=== PATIENT | male | born 1985 | race African-American/Black ===

== ENCOUNTER 2017-05-10 12:18 | Inpatient (IN) | payer OTHER ==
[2017-05-10 14:36] VITALS: BMI 23.5
--- NOTE | 2017-05-10 16:35 | HP ---
CIWA Score - CIWA Score Nausea/Vomitin-Mild Nausea/No Vomiting Muscle Tremors: 4-Moderate,w/Arms Extend Anxiety: 5 Agitation: 4-Moderately Restless Paroxysmal Sweats: 2 Orientation: 0-Oriented Tacttile Disturbances: 0-None Auditory Disturbances: 0-None Visual Disturbances: 0-None Headache: 0-None Present CIWA-Ar Total Score: 16 Admission ROS BHS - HPI Chief Complaint: withdrawal sx Allergies/Adverse Reactions: Allergies Allergy/AdvReac Type Severity Reaction Status Date / Time No Known Allergies Allergy Verified 05/10/17 16:32 History of Present Illness: 31 years old male with long history of alcohol nicotine dependence on methadone maintenance 40 mg daily has depression is admitted to detox denies medical issue Exam Limitations: No Limitations - Ebola screening Have you traveled outside of the country in the last 21 days: No Have you had contact with anyone from an Ebola affected area: No Have you been sick,other than usual withdrawal symptoms: No Do you have a fever: No - Review of Systems Constitutional: Loss of Appetite, Changes in sleep, Unintentional Wgt. Loss, Unexplained wgt Loss EENT: reports: No Symptoms Reported Respiratory: reports: No Symptoms reported Cardiac: reports: No Symptoms Reported GI: reports: Nausea, Poor Appetite, Poor Fluid Intake, Abdominal cramping : reports: No Symptoms Reported Musculoskeletal: reports: No Symptoms Reported Integumentary: reports: No Symptoms Reported Neuro: reports: Tremors Endocrine: reports: No Symptoms Reported Hematology: reports: No Symptoms Reported Psychiatric: reports: Judgement Intact, Orientated x3, Anxious, Depressed Other Systems: Reviewed and Negative Patient History - Patient Medical History Hx Anemia: No Hx Asthma: No Hx Chronic Obstructive Pulmonary Disease (COPD): No Hx Cancer: No Hx Cardiac Disorders: No Hx Congestive Heart Failure: No Hx Hypertension: No Hx Hypercholesterolemia: No Hx Pacemaker: No HX Cerebrovascular Accident: No Hx Seizures: No Hx Dementia: No Hx Diabetes: No Hx Gastrointestinal Disorders: No Hx Liver Disease: No Hx Genitourinary Disorders: No Hx Sexually Transmitted Disorders: No Hx Renal Disease (ESRD): No Hx Thyroid Disease: No Hx Human Immunodeficiency Virus (HIV): No Hx Hepatitis C: No Hx Depression: Yes Hx Suicide Attempt: No Hx Bipolar Disorder: No Hx Schizophrenia: No - Patient Surgical History Past Surgical History: No - PPD History Previous Implant?: Yes Documented Results: Negative w/o proof Implanted On Prior [facility] Admission?: No PPD to be Administered?: Yes - Smoking Cessation Smoking history: Current every day smoker Have you smoked in the past 12 months: Yes Aproximately how many cigarettes per day: 10 Cigars Per Day: 0 Hx Chewing Tobacco Use: No Initiated information on smoking cessation: Yes 'Breaking Loose' booklet given: 05/10/17 - Substance & Tx. History Hx Alcohol Use: Yes Hx Substance Use: Yes Substance Use Type: Alcohol, Heroin Hx Substance Use Treatment: Yes (01/2017 [facility]) - Substances Abused Alcohol Route: Oral Frequency: Daily Amount used: volka 2 L Age of first use: 5 Date of Last Use: 05/10/17 Family Disease History - Family Disease History Family Disease History: Other: Father (no contact), Mother (no contact) Other Family History: only child Admission Physical Exam BHS - Vital Signs Vital Signs: Vital Signs - 24 hr 05/10/17 14:33 Temperature 97 F L Pulse Rate 112 H Respiratory 20 Rate Blood Pressure 150/94 - Physical General Appearance: Yes: Appropriately Dressed, Moderate Distress, Alcohol on Breath, Thin, Tremorous, Irritable, Sweating, Anxious HEENTM: Yes: Hearing grossly Normal, Normal ENT Inspection, Normocephalic, Normal Voice Respiratory: Yes: Chest Non-Tender, Lungs Clear, Normal Breath Sounds, No Respiratory Distress, No Accessory Muscle Use Neck: Yes: Supple, Trachea in good position Breast: Yes: Breasts Symetrical Cardiology: Yes: Regular Rhythm, Regular Rate, S1, S2, Tachycardia Abdominal: Yes: Non Tender, Soft, Increased Bowel Sounds Genitourinary: Yes: Within Normal Limits Back: Yes: Normal Inspection Musculoskeletal: Yes: full range of Motion, Gait Steady Extremities: Yes: Normal Inspection, Normal Range of Motion, Non-Tender, Tremors Neurological: Yes: Fully Oriented, Alert, Motor Strength 5/5, Normal Response, Sensory Deficit Integumentary: Yes: Warm Lymphatic: Yes: Within Normal Limits - Diagnostic (1) Alcohol dependence with uncomplicated withdrawal Current Visit: Yes Status: Acute (2) Nicotine dependence Current Visit: Yes Status: Acute Qualifiers: Nicotine product type: cigarettes Substance use status: in withdrawal Qualified Code(s): F17.213 - Nicotine dependence, cigarettes, with withdrawal (3) Weight loss Current Visit: Yes Status: Acute (4) Methadone maintenance therapy patient Current Visit: Yes Status: Chronic Comment: 40 mg verification pending (5) Depression (emotion) Current Visit: Yes Status: Suspected Qualifiers: Depression Type: dysthymia Qualified Code(s): F34.1 - Dysthymic disorder Cleared for Admission [facility] - Detox or Rehab [facility] Level of Care: Medically Managed Detox Regimen/Protocol: Librium [facility] Breath Alcohol Content Breath Alcohol Content: 0.210 Urine Drug Screen - Results Drug Screen Negative: No Urine Drug Screen Results: AMP-Amphetamines, MTD-Methadone
[2017-05-10] MEDS ORDERED: MAGNESIUM HYDROX 2400MG/30ML ORAL SUSPENSION 30 ML CUP PO PRN (16:38)
[2017-05-10] MEDS ORDERED: chlordiazePOXIDE HCL 25 MG CAPSULE PO PRN (16:38)
[2017-05-10] MEDS ORDERED: diphenhydrAMINE HCL 50 MG CAPSULE PO PRN (16:38)
[2017-05-10] MEDS ORDERED: LOPERAMIDE HCL 2 MG CAPSULE PO PRN (16:38)
[2017-05-10] MEDS ORDERED: guaiFENesin/D-METHORPHAN HB 10 ML UNIT-DOSE CUPS PO PRN (16:38)
[2017-05-10] MEDS ORDERED: ACETAMINOPHEN 325 MG TABLET (FP) PO PRN (16:38)
[2017-05-10] MEDS ORDERED: MENTHOL/PHENOL 1 EACH UD MM PRN (16:38)
[2017-05-10] MEDS ORDERED: MAG HYDROX/AL HYDROX/SIMETH 30 ML UNIT-DOSE CUP PO PRN (16:38)
[2017-05-10] MEDS ORDERED: MAGNESIUM CITRATE 300 ML BOTTLE PO PRN (16:38)
[2017-05-10] MEDS ORDERED: NICOTINE POLACRILEX 2 MG GUM BC PRN (16:38)
[2017-05-10] MEDS ORDERED: P-EPHED 60MG/TRIPROLIDI 2.5MG TABLET PO PRN (16:38)
[2017-05-10] MEDS ORDERED: IBUPROFEN 400 MG TABLET (FP) PO PRN (16:38)
[2017-05-10] MEDS ORDERED: cloNIDine HCL 0.1 MG TABLET PO PRN (16:40)
[2017-05-10] MEDS ORDERED: chlordiazePOXIDE HCL 25 MG CAPSULE PO ONE (17:45)
[2017-05-10] MEDS ORDERED: chlordiazePOXIDE HCL 25 MG CAPSULE ONE (20:52)
[2017-05-10] MEDS: THIAMINE HCL 100 MG TABLET (FP) PO SCH (22:10)
[2017-05-10] MEDS: chlordiazePOXIDE HCL 25 MG CAPSULE PO SCH (22:10)
[2017-05-10 23:37] LABS: URINE APPEARANCE SLCLOUDY; URINE BILIRUBIN NEGATIVE (NEGATIVE); URINE BLOOD NEGATIVE (NEGATIVE); URINE COLOR DKYELLOW; URINE GLUCOSE (UA) NEGATIVE (NEGATIVE); URINE KETONE NEGATIVE (NEGATIVE); URINE LEUK ESTERASE NEGATIVE (NEGATIVE); URINE NITRITE NEGATIVE (NEGATIVE); URINE UROBILINOGEN NEGATIVE mg/dL (0.2-1.0)
[2017-05-10 23:53] LABS: URINE PROTEIN 1+ (NEGATIVE)
[2017-05-11] LABS: CALCIUM OXALATE CRYSTALS MODERATE /hpf (NONE SEEN); GRANULAR CASTS 15 /lpf; URINE HYALINE CAST 4 /lpf; URINE MUCUS MODERATE; URINE RBC 1 /hpf (0-3); URINE WBC 2 /hpf (3-5)
[2017-05-11] MEDS: chlordiazePOXIDE HCL 25 MG CAPSULE PO SCH ×4 (05:59→22:23)
--- NOTE | 2017-05-11 09:21 | EKG ---
Test Reason : Blood Pressure : / mmHG Vent. Rate : 082 BPM Atrial Rate : 082 BPM P-R Int : 154 ms QRS Dur : 094 ms QT Int : 374 ms P-R-T Axes : 067 053 057 degrees QTc Int : 436 ms NORMAL SINUS RHYTHM NO PREVIOUS ECGS AVAILABLE Confirmed by BRIAN BAKER MD ([id number]) on 05/11/2017 9:21:11 AM Referred By: Confirmed By:BRIAN BAKER MD
--- NOTE | 2017-05-11 09:50 | PN ---
[facility] Progress Note Note: Patient was found in bed sleeping. He woke up after life underwriter called his name and became very irritable, hostile saying:" you guys give people medication to make me sleepy and now you want to talk to me. I don't want to talk".
[2017-05-11] MEDS: METHADONE HCL 40 MG DISPERSABLE TABLET PO SCH (10:12)
[2017-05-11] MEDS: PRENATAL VITAMINS W/ FOLIC ACID TABLET (FP) PO SCH (10:13)
[2017-05-11] MEDS: NICOTINE 14 MG/24 HOURS TOPICAL PATCH TD SCH (10:13)
[2017-05-11 10:20] LABS: MCH 30.9 pg (25.7-33.7); MCHC 33.8 g/dl (32.0-35.9); MEAN CELL VOLUME 91.5 fl (80-96); MEAN PLT VOLUME 7.2 fl (7.5-11.1); PLATELET COUNT 180 K/MM3 (134-434); RDW 13.5 % (11.9-15.9); WHITE BLOOD COUNT 3.3 K/mm3 (4.0-10.0)
--- NOTE | 2017-05-11 11:30 | CONSULT ---
[facility] Psychiatric Consult - Data Date of interview: 05/11/17 Admission source: [facility] Identifying data: Mr Chris is a 31 years old single Black male, unemployed with no source of income, homeless seeking detox treatment for alcohol Substance Abuse History: Reports history of alcohol use. He started drinking alcohol at age 5, consumes 2 pints of vodka daily. Smokes 10 cigarettes daily Medical History: Unremarkable. Smokes 10 cigarettes daily Psychiatric History: Reports being diagnosed with Bipolar Disorder approximately 7 years ago. Denies history of previous psychiatric hospitalization. Reports [facility] at [address] [place] [address] and he is prescribed Zoloft 50 mg po daily, Lamictal 200 mg po daily, Klonopin 1 mg po BID and Adderal 20 mg po daily. Told rewriter that he has been off medications for 3 days Mental Status Exam - Mental Status Exam Alert and Oriented to: Time, Place, Person Cognitive Function: Fair Patient Appearance: Well Groomed Mood: Anxious Affect: Appropriate Patient Behavior: Cooperative Speech Pattern: Clear Voice Loudness: Normal Thought Process: Intact, Goal Oriented Thought Disorder: Not Present Hallucinations: Denies Suicidal Ideation: Denies Homicidal Ideation: Denies Insight/Judgement: Fair Sleep: Fair Appetite: Good Muscle strength/Tone: Normal Gait/Station: Normal Psychiatric Findings - Problem List ([place] 1, 2,3) (1) Bipolar II disorder Current Visit: Yes Status: Acute (2) Alcohol dependence with uncomplicated withdrawal Current Visit: Yes Status: Acute (3) Opioid dependence on agonist therapy Current Visit: Yes Status: Acute (4) Nicotine dependence Current Visit: Yes Status: Acute Qualifiers: Nicotine product type: cigarettes Substance use status: in withdrawal Qualified Code(s): F17.213 - Nicotine dependence, cigarettes, with withdrawal - Initial Treatment Plan Initial Treatment Plan: 1) Resume Zoloft 50 mg po daily and Lamictal 200 mg po daily. 2) Continue inpatient detoxification
[2017-05-11 11:31] LABS: ALBUMIN 3.4 g/dl (3.4-5.0); ALK PHOS 53 U/L (45-117); ANION GAP 12 (8-16); BILIRUBIN,TOTAL 0.6 mg/dL (0.2-1.0); CALCIUM 9.3 mg/dL (8.5-10.1); CO2 26 mmol/L (21-32); CREATININE 0.8 mg/dL (0.7-1.3); GLUCOSE,RANDOM 89 mg/dL (74-106); SGOT/AST 56 U/L (15-37); SGPT/ALT 55 U/L (12-78); TOT PROT 6.3 g/dl (6.4-8.2)
--- NOTE | 2017-05-11 11:44 | PN ---
[facility] CIWA - CIWA Score Nausea/Vomitin-Mild Nausea/No Vomiting Muscle Tremors: 3 Anxiety: 5 Agitation: 3 Paroxysmal Sweats: 3 Orientation: 0-Oriented Tacttile Disturbances: 2-Mild Itch/Numbness/Burn Auditory Disturbances: 0-None Visual Disturbances: 2-Mild Sensitivity Headache: 0-None Present CIWA-Ar Total Score: 19 S Progress Note (SOAP) Subjective: Tremors, Anxious, Sweating. Objective: PT. A & O X 3, OBSERVED AMBULATING ON UNIT. NO ACUTE DISTRESS. 05/11/17 11:43 Vital Signs Temperature 97.6 F 05/11/17 10:43 Pulse Rate 95 H 05/11/17 10:43 Respiratory Rate 20 05/11/17 10:43 Blood Pressure 151/70 05/11/17 10:43 O2 Sat by Pulse Oximetry (%) Laboratory Tests 05/10/17 05/11/17 05/11/17 22:00 07:40 07:40 WBC 3.3 L RBC 4.77 Hgb 14.8 Hct 43.6 MCV 91.5 MCH 30.9 MCHC 33.8 RDW 13.5 Plt Count 180 MPV 7.2 L Sodium 138 Potassium 3.9 Chloride 100 Carbon Dioxide 26 Anion Gap 12 BUN 9 Creatinine 0.8 Creat Clearance w eGFR > 60 Random Glucose 89 Calcium 9.3 Total Bilirubin 0.6 AST 56 H ALT 55 Alkaline Phosphatase 53 Total Protein 6.3 L Albumin 3.4 Urine Color Dkyellow Urine Appearance Slcloudy Urine pH 6.0 Ur Specific [place] 1.025 Urine Protein 1+ H Urine Glucose (UA) Negative Urine Ketones Negative Urine Blood Negative Urine Nitrite Negative Urine Bilirubin Negative Urine Urobilinogen Negative Urine RBC 1 Urine WBC 2 Ur Epithelial Cells Rare Calcium Oxalate Crystal Moderate Hyaline Casts 4 Granular Casts 15 Urine Mucus Moderate RPR Titer 05/11/17 07:40 WBC RBC Hgb Hct MCV MCH MCHC RDW Plt Count MPV Sodium Potassium Chloride Carbon Dioxide Anion Gap BUN Creatinine Creat Clearance w eGFR Random Glucose Calcium Total Bilirubin AST ALT Alkaline Phosphatase Total Protein Albumin Urine Color Urine Appearance Urine pH Ur Specific [place] Urine Protein Urine Glucose (UA) Urine Ketones Urine Blood Urine Nitrite Urine Bilirubin Urine Urobilinogen Urine RBC Urine WBC Ur Epithelial Cells Calcium Oxalate Crystal Hyaline Casts Granular Casts Urine Mucus RPR Titer Nonreactive LABS NOTED. Assessment: 05/11/17 11:44 WITHDRAWAL SYMPTOMS. Plan: CONTINUE DETOX. REPEAT CBC ON 05/13/2017 FOR LOW ADMISSION WBC LEVEL. REPEAT UA FOR ADMISSION ABNORMALITIES. INCREASE DAILY PO FLUID INTAKE.
[2017-05-11] MEDS: lamoTRIgine 100 MG TABLET (FP) PO SCH (13:58)
[2017-05-11] MEDS: SERTRALINE HCL 50 MG TABLET (FP) PO SCH (13:58)
[2017-05-11 16:55] LABS: URINE APPEARANCE CLEAR; URINE BILIRUBIN NEGATIVE (NEGATIVE); URINE BLOOD NEGATIVE (NEGATIVE); URINE COLOR YELLOW; URINE GLUCOSE (UA) NEGATIVE (NEGATIVE); URINE KETONE TRACE (NEGATIVE); URINE LEUK ESTERASE NEGATIVE (NEGATIVE); URINE NITRITE NEGATIVE (NEGATIVE); URINE PROTEIN NEGATIVE (NEGATIVE); URINE UROBILINOGEN 0.2 mg/dL (0.2-1.0)
[2017-05-11] MEDS: THIAMINE HCL 100 MG TABLET (FP) PO SCH (22:23)
[2017-05-12] MEDS: METHADONE HCL 40 MG DISPERSABLE TABLET PO SCH (06:07)
[2017-05-12] MEDS: chlordiazePOXIDE HCL 25 MG CAPSULE PO SCH ×3 (06:09→19:07)
[2017-05-12] MEDS: lamoTRIgine 100 MG TABLET (FP) PO SCH (10:46)
[2017-05-12] MEDS: NICOTINE 14 MG/24 HOURS TOPICAL PATCH TD SCH (10:46)
[2017-05-12] MEDS: SERTRALINE HCL 50 MG TABLET (FP) PO SCH (10:46)
[2017-05-12] MEDS: PRENATAL VITAMINS W/ FOLIC ACID TABLET (FP) PO SCH (10:46)
--- NOTE | 2017-05-12 13:47 | PN ---
[facility] CIWA - CIWA Score Nausea/Vomitin-No Nausea/No Vomiting Muscle Tremors: 3 Anxiety: 4-Mod. Anxious/Guarded Agitation: 4-Moderately Restless Paroxysmal Sweats: 3 Orientation: 2-Disoriented Date<2 days Tacttile Disturbances: 1-Very Mild Itch/Numbness Auditory Disturbances: 0-None Visual Disturbances: 0-None Headache: 0-None Present CIWA-Ar Total Score: 17 S Progress Note (SOAP) Subjective: Fatigue, Tremors, Anxious, Sweating. Objective: PT. A & O X 2 (DISORIENTED ABOUT DAY / DATE). PT. OBSERVED AMBULATING ON UNIT. NO ACUTE DISTRESS. 05/12/17 13:44 Vital Signs Temperature 96.3 F L 05/12/17 09:48 Pulse Rate 68 05/12/17 09:48 Respiratory Rate 18 05/12/17 09:48 Blood Pressure 122/84 05/12/17 09:48 O2 Sat by Pulse Oximetry (%) Laboratory Tests 05/10/17 05/11/17 05/11/17 22:00 07:40 07:40 WBC 3.3 L RBC 4.77 Hgb 14.8 Hct 43.6 MCV 91.5 MCH 30.9 MCHC 33.8 RDW 13.5 Plt Count 180 MPV 7.2 L Sodium 138 Potassium 3.9 Chloride 100 Carbon Dioxide 26 Anion Gap 12 BUN 9 Creatinine 0.8 Creat Clearance w eGFR > 60 Random Glucose 89 Calcium 9.3 Total Bilirubin 0.6 AST 56 H ALT 55 Alkaline Phosphatase 53 Total Protein 6.3 L Albumin 3.4 Urine Color Dkyellow Urine Appearance Slcloudy Urine pH 6.0 Ur Specific [place] 1.025 Urine Protein 1+ H Urine Glucose (UA) Negative Urine Ketones Negative Urine Blood Negative Urine Nitrite Negative Urine Bilirubin Negative Urine Urobilinogen Negative Urine RBC 1 Urine WBC 2 Ur Epithelial Cells Rare Calcium Oxalate Crystal Moderate Hyaline Casts 4 Granular Casts 15 Urine Mucus Moderate RPR Titer 05/11/17 05/11/17 07:40 15:00 WBC RBC Hgb Hct MCV MCH MCHC RDW Plt Count MPV Sodium Potassium Chloride Carbon Dioxide Anion Gap BUN Creatinine Creat Clearance w eGFR Random Glucose Calcium Total Bilirubin AST ALT Alkaline Phosphatase Total Protein Albumin Urine Color Yellow Urine Appearance Clear Urine pH 6.0 Ur Specific [place] 1.020 Urine Protein Negative Urine Glucose (UA) Negative Urine Ketones Trace H Urine Blood Negative Urine Nitrite Negative Urine Bilirubin Negative Urine Urobilinogen 0.2 Urine RBC Urine WBC Ur Epithelial Cells Calcium Oxalate Crystal Hyaline Casts Granular Casts Urine Mucus RPR Titer Nonreactive LABS NOTED. RESULTS OF REPEAT UA NOTED. 05/12/17 13:46 Assessment: 05/12/17 13:45 WITHDRAWAL SYMPTOMS. Plan: CONTINUE DETOX. INCREASE DAILY PO FLUID INTAKE.
[2017-05-12] MEDS: NICOTINE 21 MG/24 HOURS TOPICAL PATCH TD SCH (15:39)
[2017-05-12] MEDS: chlordiazePOXIDE 5 MG CAPSULE PO SCH (22:35)
[2017-05-12] MEDS: THIAMINE HCL 100 MG TABLET (FP) PO SCH (22:35)
[2017-05-13] MEDS: METHADONE HCL 40 MG DISPERSABLE TABLET PO SCH (05:45)
[2017-05-13] MEDS: chlordiazePOXIDE 5 MG CAPSULE PO SCH ×3 (06:38→19:05)
[2017-05-13] MEDS: NICOTINE 21 MG/24 HOURS TOPICAL PATCH TD SCH (10:15)
[2017-05-13] MEDS: lamoTRIgine 100 MG TABLET (FP) PO SCH (10:15)
[2017-05-13] MEDS: PRENATAL VITAMINS W/ FOLIC ACID TABLET (FP) PO SCH (10:15)
[2017-05-13] MEDS: SERTRALINE HCL 50 MG TABLET (FP) PO SCH (10:15)
--- NOTE | 2017-05-13 15:32 | PN ---
S Progress Note (SOAP) Subjective: Sweating, tremor, interrupted sleep, anxious Objective: 05/13/17 15:31 Last Vital Signs Temp Pulse Resp BP Pulse Ox 97.8 F 94 H 18 122/79 05/13/17 10:59 05/13/17 10:59 05/13/17 10:59 05/13/17 10:59 Laboratory Tests 05/10/17 05/11/17 05/11/17 22:00 07:40 07:40 WBC 3.3 L RBC 4.77 Hgb 14.8 Hct 43.6 MCV 91.5 MCH 30.9 MCHC 33.8 RDW 13.5 Plt Count 180 MPV 7.2 L Sodium 138 Potassium 3.9 Chloride 100 Carbon Dioxide 26 Anion Gap 12 BUN 9 Creatinine 0.8 Creat Clearance w eGFR > 60 Random Glucose 89 Calcium 9.3 Total Bilirubin 0.6 AST 56 H ALT 55 Alkaline Phosphatase 53 Total Protein 6.3 L Albumin 3.4 Urine Color Dkyellow Urine Appearance Slcloudy Urine pH 6.0 Ur Specific [place] 1.025 Urine Protein 1+ H Urine Glucose (UA) Negative Urine Ketones Negative Urine Blood Negative Urine Nitrite Negative Urine Bilirubin Negative Urine Urobilinogen Negative Urine RBC 1 Urine WBC 2 Ur Epithelial Cells Rare Calcium Oxalate Crystal Moderate Hyaline Casts 4 Granular Casts 15 Urine Mucus Moderate RPR Titer 05/11/17 05/11/17 07:40 15:00 WBC RBC Hgb Hct MCV MCH MCHC RDW Plt Count MPV Sodium Potassium Chloride Carbon Dioxide Anion Gap BUN Creatinine Creat Clearance w eGFR Random Glucose Calcium Total Bilirubin AST ALT Alkaline Phosphatase Total Protein Albumin Urine Color Yellow Urine Appearance Clear Urine pH 6.0 Ur Specific [place] 1.020 Urine Protein Negative Urine Glucose (UA) Negative Urine Ketones Trace H Urine Blood Negative Urine Nitrite Negative Urine Bilirubin Negative Urine Urobilinogen 0.2 Urine RBC Urine WBC Ur Epithelial Cells Calcium Oxalate Crystal Hyaline Casts Granular Casts Urine Mucus RPR Titer Nonreactive Labs noted Assessment: 05/13/17 15:32 Withdrawal symptoms Plan: Continue detox
[2017-05-14] MEDS: METHADONE HCL 40 MG DISPERSABLE TABLET PO SCH (05:40)
[2017-05-14] MEDS: chlordiazePOXIDE HCL 10 MG CAPSULE PO SCH ×2 (05:41→10:28)
[2017-05-14 09:12] VITALS: BP 137/58; PULSE 83; TEMP 97.4
--- NOTE | 2017-05-14 09:27 | DS ---
[facility] Detox Discharge Summary Admission Date: 05/10/17 Discharge Date: 05/14/17 - History Present History: Alcohol Dependence, Opioid Dependence, MMTP Pertinent Past History: nicotine dependence, anxiety, insomnia, and depression - Physical Exam Results Vital Signs: Vital Signs Temperature 97.4 F L 05/14/17 09:12 Pulse Rate 83 05/14/17 09:12 Respiratory Rate 18 05/14/17 09:12 Blood Pressure 137/58 05/14/17 09:12 O2 Sat by Pulse Oximetry (%) Laboratory Tests 05/10/17 05/11/17 05/11/17 22:00 07:40 07:40 WBC 3.3 L RBC 4.77 Hgb 14.8 Hct 43.6 MCV 91.5 MCH 30.9 MCHC 33.8 RDW 13.5 Plt Count 180 MPV 7.2 L Sodium 138 Potassium 3.9 Chloride 100 Carbon Dioxide 26 Anion Gap 12 BUN 9 Creatinine 0.8 Creat Clearance w eGFR > 60 Random Glucose 89 Calcium 9.3 Total Bilirubin 0.6 AST 56 H ALT 55 Alkaline Phosphatase 53 Total Protein 6.3 L Albumin 3.4 Urine Color Dkyellow Urine Appearance Slcloudy Urine pH 6.0 Ur Specific [place] 1.025 Urine Protein 1+ H Urine Glucose (UA) Negative Urine Ketones Negative Urine Blood Negative Urine Nitrite Negative Urine Bilirubin Negative Urine Urobilinogen Negative Urine RBC 1 Urine WBC 2 Ur Epithelial Cells Rare Calcium Oxalate Crystal Moderate Hyaline Casts 4 Granular Casts 15 Urine Mucus Moderate RPR Titer 05/11/17 05/11/17 07:40 15:00 WBC RBC Hgb Hct MCV MCH MCHC RDW Plt Count MPV Sodium Potassium Chloride Carbon Dioxide Anion Gap BUN Creatinine Creat Clearance w eGFR Random Glucose Calcium Total Bilirubin AST ALT Alkaline Phosphatase Total Protein Albumin Urine Color Yellow Urine Appearance Clear Urine pH 6.0 Ur Specific [place] 1.020 Urine Protein Negative Urine Glucose (UA) Negative Urine Ketones Trace H Urine Blood Negative Urine Nitrite Negative Urine Bilirubin Negative Urine Urobilinogen 0.2 Urine RBC Urine WBC Ur Epithelial Cells Calcium Oxalate Crystal Hyaline Casts Granular Casts Urine Mucus RPR Titer Nonreactive Pertinent Admission Physical Exam Findings: withdrawal sx - Treatment Hospital Course: Detox Protocol Followed, Detoxed Safely, Responded well, Discharged Condition Good, Rehab Referral Accepted - Medication Discharge Medications: Ambulatory Orders Sertraline HCl [Zoloft -] 50 mg PO DAILY 05/10/17 - Diagnosis (1) Alcohol dependence with uncomplicated withdrawal Current Visit: Yes Status: Acute (2) Bipolar II disorder Current Visit: Yes Status: Acute (3) Nicotine dependence Current Visit: Yes Status: Acute Qualifiers: Nicotine product type: cigarettes Substance use status: in withdrawal Qualified Code(s): F17.213 - Nicotine dependence, cigarettes, with withdrawal (4) Opioid dependence on agonist therapy Current Visit: Yes Status: Chronic (5) Depression (emotion) Current Visit: Yes Status: Suspected Qualifiers: Depression Type: dysthymia Qualified Code(s): F34.1 - Dysthymic disorder - AMA Did Patient Leave Against Medical Advice: No
[2017-05-14] MEDS: SERTRALINE HCL 50 MG TABLET (FP) PO SCH (10:27)
[2017-05-14] MEDS: PRENATAL VITAMINS W/ FOLIC ACID TABLET (FP) PO SCH (10:27)
[2017-05-14] MEDS: NICOTINE 21 MG/24 HOURS TOPICAL PATCH TD SCH (10:28)
[2017-05-14] MEDS: lamoTRIgine 100 MG TABLET (FP) PO SCH (10:28)
== END 2017-05-14 10:20 | disposition home or self-care (01) | DRG 773 ==
LOC: YASAS 12:18 → Y3N 17:16
PROVIDERS: ADMIT Internal Medicine; ATTEND Internal Medicine
PROC: HZ2ZZZZ Detoxification Services for Substance Abuse Treatment (ICD-10-PCS; principal; 2017-05-10)
DX: F10.230 Alcohol dependence with withdrawal, uncomplicated (principal); F11.20 Opioid dependence, uncomplicated; F34.1 Dysthymic disorder; F31.81 Bipolar II disorder; R00.0 Tachycardia, unspecified; Z87.898 Personal history of other specified conditions
CPT/HCPCS: 36415; 80053; 81003; 81015; 85027; 86593; 93005; 93010

== ENCOUNTER 2018-10-04 11:24 | Inpatient (IN) | payer OTHER ==
[2018-10-04 11:59] VITALS: BMI 23.8
--- NOTE | 2018-10-04 12:56 | HP ---
"COWS - Scale Resting Pulse: 2= [place] 101-120 Sweatin= No chills or Flushing Restless Observation: 0= Sits Still Pupil Size: 0= Normal to Room Light Bone or Joint Aches: 4=Acute Joint/Muscle Pain Runny Nose/ Eye Tearin= Runny Nose/Eyes GI Upset > 30mins: 1= Stomach Cramp Tremor Observation: 0= None Yawning Observation: 0= None Anxiety or Irritability: 1=Feels Anxious/Irritable Goose Flesh Skin: 0=Smooth Skin COWS Score: 10 CIWA Score Nausea/Vomitin-No Nausea/No Vomiting Muscle Tremors: None Anxiety: 0-No Anxiety, at Ease Agitation: 0-Normal Activity Paroxysmal Sweats: No Perspiration Orientation: 0-Oriented Tacttile Disturbances: 0-None Auditory Disturbances: 0-None Visual Disturbances: 0-None Headache: 4-Moderately Severe CIWA-Ar Total Score: 4 - Admission Criteria [facility] Guidelines: Admission for Medically Managed Detox: Requires at least one of the followin. CIWA greater than 12 2. Seizures within the past 24 hours 3. Delirium tremens within the past 24 hours 4. Hallucinations within the past 24 hours 5. Acute intervention needed for co occurring medical disorder 6. Acute intervention needed for co occurring psychiatric disorder 7. Severe withdrawal that cannot be handled at a lower level of care (continued vomiting, continued diarrhea, abnormal vital signs) requiring intravenous medication and/or fluids 8. Admission ROS [facility] Allergies/Adverse Reactions: Allergies Allergy/AdvReac Type Severity Reaction Status Date / Time No Known Allergies Allergy Verified 10/04/18 13:21 History of Present Illness: patient here requesting detox from etoh use , reports 1 liter of vodka/day since age 11 , heavily since age 16 , prior detox at this facility 1-2 years ago , latest use last night , current symptoms as above , NGA 0.108 , reports tremors if not drinking , + blackouts , + falls while intoxicated , most recently 1 mo ago hit head does not recall specifics, states did not seek medical attention , current [place] since this morning . Denies driving after drinking . Denies seizures . tobacco : denies heroin : reports 2 bundles/day , first age of use 21 , IVDU until 4 mo ago , needles from the store , denies sharing, denies re-using , denies abscess , OD x 8 , most recently 1 mo ago , no Narcan , latest use last night , current symptoms as above. PMHX : denies PSHX : denies PSYch : denies This report was requested by: Ne Acosta | Reference #: [id number] Others' Prescriptions Patient Name: Tera Chris Date: 1985 Address: [address] [place] [address] Sex: Male Rx Written Rx Dispensed Drug Quantity Days Supply Prescriber Name 12/25/2017 12/25/2017 chlordiazepoxide 10 mg capsule 18 2 Laks, Nicholas PETERSON 10/31/2017 10/31/2017 suboxone 2 mg-0.5 mg sl film 6 2 Laks, Nicholas PETERSON 10/30/2017 10/30/2017 suboxone 8 mg-2 mg sl film 3 1 Laks, Nicholas PETERSON 10/26/2017 10/26/2017 chlordiazepoxide 10 mg capsule 36 4 Laks, Nicholas PETERSON 10/25/2017 10/25/2017 suboxone 8 mg-2 mg sl film 9 3 Laks, Nicholas PETERSON Patient Name: Tera Chirs Date: 1985 Address: [address] [place] [address] Sex: Male Rx Written Rx Dispensed Drug Quantity Days Supply Prescriber Name 12/18/2017 12/24/2017 dextroamp-amphetamin 20 mg tab 60 30 Haritha Urbina MD 10/06/2017 10/06/2017 dextroamp-amphetamin 20 mg tab 54 27 Blade Lundy) Patient Name: Tera Chris Date: 1985 Address: [address] [place] [id number] Sex: Male Rx Written Rx Dispensed Drug Quantity Days Supply Prescriber Name 11/28/2017 12/01/2017 hydrocodone-acetaminophen 5-325 mg tablet 12 2 [facility] * - Drugs marked with an asterisk are compound drugs. If the compound drug is made up of more than one controlled substance, then each controlled substance will be a separate row in the table. Click the Report Suspicious Activity button to report information related to controlled substance suspicious activity to the [place] [employer]. Click the Send Questions/Comments button to send questions about this report to the [place] [employer], or call . Click the Substance Abuse Treatment Information button to go to the Office of Alcoholism and Substance Abuse Services website, www.oasas.[place].gov or call 1- 893.398.9188. Exam Limitations: Clinical Condition, Intoxication - Ebola screening Have you traveled outside of the country in the last 21 days: No Have you had contact with anyone from an Ebola affected area: No Have you been sick,other than usual withdrawal symptoms: No Do you have a fever: No - Review of Systems Constitutional: See HPI, Loss of Appetite EENT: reports: See HPI, Nose Congestion, Other (denies vision loss, denies dysphagia) Respiratory: reports: No Symptoms reported Cardiac: reports: No Symptoms Reported GI: reports: See HPI : reports: No Symptoms Reported Musculoskeletal: reports: See HPI Integumentary: reports: See HPI, Bruising (left side forehead) Neuro: reports: Headache Endocrine: reports: No Symptoms Reported Psychiatric: reports: Orientated x3, Anxious Patient History - Patient Medical History Hx Anemia: No Hx Asthma: No Hx Chronic Obstructive Pulmonary Disease (COPD): No Hx Cancer: No Hx Cardiac Disorders: No Hx Congestive Heart Failure: No Hx Hypertension: No Hx Hypercholesterolemia: No Hx Pacemaker: No HX Cerebrovascular Accident: No Hx Seizures: No Hx Dementia: No Hx Diabetes: No Hx Gastrointestinal Disorders: No Hx Liver Disease: No Hx Genitourinary Disorders: No Hx Sexually Transmitted Disorders: No Hx Renal Disease (ESRD): No Hx Thyroid Disease: No Hx Human Immunodeficiency Virus (HIV): No Hx Hepatitis C: No Hx Depression: Yes Hx Suicide Attempt: No Hx Bipolar Disorder: No Hx Schizophrenia: No - Patient Surgical History Past Surgical History: No Hx Neurologic Surgery: No Hx Cataract Extraction: No Hx Cardiac Surgery: No Hx Lung Surgery: No Hx Breast Surgery: No Hx Breast Biopsy: No Hx Abdominal Surgery: No Hx Appendectomy: No Hx Cholecystectomy: No Hx Genitourinary Surgery: No Hx Section: No Hx Orthopedic Surgery: No Anesthesia Reaction: No - PPD History Date: 05/12/17 - Smoking Cessation Smoking history: Current every day smoker Have you smoked in the past 12 months: Yes Aproximately how many cigarettes per day: 10 Cigars Per Day: 0 Hx Chewing Tobacco Use: No Initiated information on smoking cessation: No - Substances Abused Heroin Route: Inhalation Frequency: Daily Amount used: 20 bags Age of first use: 17 Date of Last Use: 10/03/18 Alcohol-vodka Route: Oral Frequency: Daily Amount used: 1 liter Age of first use: 12 Date of Last Use: 10/03/18 Family Disease History - Family Disease History Family Disease History: Other: Father (no contact), Mother (no contact) Admission Physical Exam [facility] - Vital Signs Vital Signs: Vital Signs - 24 hr 10/04/18 11:57 Temperature 98.5 F Pulse Rate 107 H Respiratory 20 Rate Blood Pressure 139/69 - Physical General Appearance: Yes: Disheveled, Mild Distress, Alcohol on Breath, Intoxicated HEENTM: Yes: EOMI, Hearing grossly Normal, Normocephalic, Normal Voice, Nasal Congestion, Rhinorrhea Respiratory: Yes: Chest Non-Tender, Lungs Clear, Normal Breath Sounds Cardiology: Yes: Regular Rhythm, Regular Rate, S1, S2, Tachycardia Abdominal: Yes: Normal Bowel Sounds, Non Tender, Soft Back: Yes: Normal Inspection Musculoskeletal: Yes: full range of Motion, Gait Steady Extremities: Yes: Normal Range of Motion, Non-Tender Neurological: Yes: Motor Strength 5/5 Integumentary: Yes: Other (left frontal superficial abrasion) - Diagnostic (1) Opioid dependence Current Visit: Yes Status: Acute Qualifiers: Substance use status: in withdrawal Qualified Code(s): F11.23 - Opioid dependence with withdrawal (2) Alcohol dependence with uncomplicated withdrawal Current Visit: No Status: Acute (3) Nicotine dependence Current Visit: No Status: Acute Qualifiers: Nicotine product type: cigarettes Substance use status: in withdrawal Qualified Code(s): F17.213 - Nicotine dependence, cigarettes, with withdrawal [facility] Breath Alcohol Content Breath Alcohol Content: 0.168 Urine Drug Screen - Results Drug Screen Negative: No Urine Drug Screen Results: OPI-Opiates, BZO-Benzodiazepines Inpatient Rehab Admission - Rehab Decision to Admit Inpatient rehab admission?: No"
[2018-10-04] MEDS ORDERED: ACETAMINOPHEN 325 MG TABLET (FP) PO PRN (13:15)
[2018-10-04] MEDS ORDERED: NICOTINE POLACRILEX 2 MG GUM BUC PRN (13:15)
[2018-10-04] MEDS ORDERED: MAG HYDROX/AL HYDROX/SIMETH 30 ML UNIT-DOSE CUP PO PRN (13:15)
[2018-10-04] MEDS ORDERED: MAGNESIUM CITRATE 300 ML BOTTLE PO PRN (13:15)
[2018-10-04] MEDS ORDERED: MAGNESIUM HYDROX 2400MG/30ML ORAL SUSPENSION 30 ML CUP PO PRN (13:15)
[2018-10-04] MEDS ORDERED: IBUPROFEN 400 MG TABLET (FP) PO PRN (13:15)
[2018-10-04] MEDS ORDERED: METHADONE HCL 10 MG TABLET (FOR DETOX USE ONLY) PO ONE ×2 (14:05→23:00)
[2018-10-04] MEDS: chlordiazePOXIDE HCL 25 MG CAPSULE PO PRN (14:54)
[2018-10-04] MEDS: chlordiazePOXIDE HCL 25 MG CAPSULE PO SCH ×2 (17:48→22:20)
[2018-10-04] MEDS ORDERED: MELATONIN 5 MG TABLETS PO PRN (22:00)
[2018-10-04] MEDS: THIAMINE HCL 100 MG TABLET (FP) PO SCH (22:19)
[2018-10-04] MEDS: MENTHOL/PHENOL 1 EACH UD MM PRN (22:41)
[2018-10-04] MEDS ORDERED: cloNIDine HCL 0.1 MG TABLET PO ONE (23:46)
--- NOTE | 2018-10-04 23:51 | PN ---
S Progress Note Note: Patient's blood pressure is B/P 167/111. Patient is asymptomatic. Vital Signs Temperature 97.5 F L 10/04/18 23:44 Pulse Rate 68 10/04/18 23:44 Respiratory Rate 18 10/04/18 23:44 Blood Pressure 167/111 H 10/04/18 23:44 O2 Sat by Pulse Oximetry (%) Action: Clonidine 0.1mg tablet oral ordered
[2018-10-05] MEDS: guaiFENesin 200 MG/10 ML 10 ML UNIT-DOSE CUPS PO PRN (02:06)
[2018-10-05] MEDS: chlordiazePOXIDE HCL 25 MG CAPSULE PO SCH ×4 (05:21→22:14)
[2018-10-05] MEDS ORDERED: METHADONE HCL 10 MG TABLET (FOR DETOX USE ONLY) PO SCH (10:00)
[2018-10-05] MEDS: PRENATAL VITAMINS W/ FOLIC ACID TABLET (FP) PO SCH (10:25)
[2018-10-05 11:22] LABS: ALBUMIN 3.5 g/dl (3.4-5.0); ALK PHOS 44 U/L (45-117); ANION GAP 9 MMOL/L (8-16); BILIRUBIN,TOTAL 0.3 mg/dL (0.2-1); BLOOD UREA NITROGEN 8 mg/dL (7-18); CALCIUM 8.8 mg/dL (8.5-10.1); CHLORIDE 101 mmol/L (98-107); CO2 27 mmol/L (21-32); CREATININE 0.7 mg/dL (0.55-1.3); GLUCOSE,RANDOM 96 mg/dL (74-106); SGOT/AST 49 U/L (15-37); SGPT/ALT 56 U/L (13-61); SODIUM 137 mmol/L (136-145); TOT PROT 6.9 g/dl (6.4-8.2)
[2018-10-05 11:40] LABS: HEMATOCRIT 41.5 % (35.4-49); HEMOGLOBIN 14.6 GM/dL (11.7-16.9); MCH 32.2 pg (25.7-33.7); MCHC 35.1 g/dl (32.0-35.9); MEAN CELL VOLUME 91.9 fl (80-96); MEAN PLT VOLUME 8.1 fl (7.5-11.1); PLATELET COUNT 228 K/MM3 (134-434); RBC 4.52 M/mm3 (4.00-5.60); RDW 15.2 % (11.9-15.9); WHITE BLOOD COUNT 7.1 K/mm3 (4.0-10.0)
[2018-10-05] MEDS: LIDOCAINE 5% TOPICAL PATCH TP SCH (14:15)
[2018-10-05] MEDS: NICOTINE 21 MG/24 HOURS TOPICAL PATCH TD SCH (14:15)
--- NOTE | 2018-10-05 14:35 | PN ---
[facility] CIWA - CIWA Score Nausea/Vomitin-No Nausea/No Vomiting Muscle Tremors: 3 Anxiety: 2 Agitation: 0-Normal Activity Paroxysmal Sweats: 3 Orientation: 0-Oriented Tacttile Disturbances: 0-None Auditory Disturbances: 2-Mild Harshness/Frighten Visual Disturbances: 3-Moderate Sensitivity Headache: 0-None Present CIWA-Ar Total Score: 13 S COWS - Scale Resting Pulse: 0= [place] 80 or Below Sweatin= Chills/Flushing Restless Observation: 0= Sits Still Pupil Size: 0= Normal to Room Light Bone or Joint Aches: 2= Severe Diffuse Aches Runny Nose/ Eye Tearin= None GI Upset > 30mins: 0= None Tremor Observation of Outstretched Hands: 2= Slight Tremor Visible Yawning Observation: 1= 1-2x During Session Anxiety or Irritability: 2=Irritable/Anxious Goose Flesh Skin: 3=Piloerection COWS Score: 11 [facility] Progress Note (SOAP) Subjective: Body Aches, Sweating, Tremors. Objective: PATIENT A & O X 3, OBSERVED AMBULATING ON UNIT. IN NO ACUTE DISTRESS. PATIENT DENIES CHEST PAIN. 10/05/18 14:32 Vital Signs Temperature 96.0 F L 10/05/18 09:28 Pulse Rate 72 10/05/18 13:00 Respiratory Rate 20 10/05/18 13:00 Blood Pressure 139/92 10/05/18 09:28 O2 Sat by Pulse Oximetry (%) Laboratory Tests 10/05/18 10/05/18 10/05/18 06:00 06:00 06:00 WBC 7.1 RBC 4.52 Hgb 14.6 Hct 41.5 MCV 91.9 MCH 32.2 MCHC 35.1 RDW 15.2 D Plt Count 228 D MPV 8.1 D Sodium 137 Potassium 4.0 Chloride 101 Carbon Dioxide 27 Anion Gap 9 BUN 8 Creatinine 0.7 Creat Clearance w eGFR > 60 Random Glucose 96 Calcium 8.8 Total Bilirubin 0.3 AST 49 H ALT 56 Alkaline Phosphatase 44 L Total Protein 6.9 Albumin 3.5 RPR Titer Nonreactive LABS NOTED. 10/05/18 14:33 Assessment: 10/05/18 14:33 WITHDRAWAL SYMPTOMS. HYPERTENSION. Plan: EXTERNAL MEDICATION REVIEW REVEALS THAT PATIENT WAS PRESCRIBED AMLODIPNIE, 10 MG PO DAILY BY OUTPATIENT MEDICAL PROVIDER. WILL START AMLODIPINE, 10 MG PO DAILY FOR ELEVATED BLOOD PRESSURE.
[2018-10-05] MEDS ORDERED: amLODIPine BESYLATE 10 MG TABLET (FP) PO ONE (15:00)
[2018-10-05] MEDS: THIAMINE HCL 100 MG TABLET (FP) PO SCH (22:14)
[2018-10-05] MEDS: LIDOCAINE PATCH REMOVAL MC SCH (22:31)
[2018-10-06] MEDS: chlordiazePOXIDE HCL 25 MG CAPSULE PO SCH ×2 (05:37→10:48)
[2018-10-06] MEDS ORDERED: METHADONE HCL 5 MG TABLET (FOR DETOX USE ONLY) PO SCH (10:00)
[2018-10-06] MEDS: amLODIPine BESYLATE 10 MG TABLET (FP) PO SCH (10:48)
[2018-10-06] MEDS: LIDOCAINE 5% TOPICAL PATCH TP SCH (10:51)
[2018-10-06] MEDS: NICOTINE 21 MG/24 HOURS TOPICAL PATCH TD SCH (10:51)
[2018-10-06] MEDS: PRENATAL VITAMINS W/ FOLIC ACID TABLET (FP) PO SCH (11:53)
[2018-10-06] MEDS ORDERED: COLLOIDAL OATMEAL 1 BAR EACH TP PRN (14:14)
--- NOTE | 2018-10-06 14:15 | PN ---
[facility] CIWA - CIWA Score Nausea/Vomitin-No Nausea/No Vomiting Muscle Tremors: 3 Anxiety: 2 Agitation: 2 Paroxysmal Sweats: 1-Minimal Palms Moist Orientation: 1-Uncertain about Date Tacttile Disturbances: 0-None Auditory Disturbances: 0-None Visual Disturbances: 0-None Headache: 1-Very Mild CIWA-Ar Total Score: 10 S Progress Note (SOAP) Subjective: feeling better motivate to care for personal hygiene tremor sweating slept througout the night Objective: 10/06/18 14:17 Vital Signs Temperature 96.0 F L 10/06/18 13:42 Pulse Rate 72 10/06/18 13:42 Respiratory Rate 20 10/06/18 13:42 Blood Pressure 142/92 10/06/18 13:42 O2 Sat by Pulse Oximetry (%) Laboratory Last Values WBC 7.1 K/mm3 (4.0-10.0) 10/05/18 06:00 RBC 4.52 M/mm3 (4.00-5.60) 10/05/18 06:00 Hgb 14.6 GM/dL (11.7-16.9) 10/05/18 06:00 Hct 41.5 % (35.4-49) 10/05/18 06:00 MCV 91.9 fl (80-96) 10/05/18 06:00 MCH 32.2 pg (25.7-33.7) 10/05/18 06:00 MCHC 35.1 g/dl (32.0-35.9) 10/05/18 06:00 RDW 15.2 % (11.9-15.9) D 10/05/18 06:00 Plt Count 228 K/MM3 (134-434) D 10/05/18 06:00 MPV 8.1 fl (7.5-11.1) D 10/05/18 06:00 Sodium 137 mmol/L (136-145) 10/05/18 06:00 Potassium 4.0 mmol/L (3.5-5.1) 10/05/18 06:00 Chloride 101 mmol/L (98-107) 10/05/18 06:00 Carbon Dioxide 27 mmol/L (21-32) 10/05/18 06:00 Anion Gap 9 MMOL/L (8-16) 10/05/18 06:00 BUN 8 mg/dL (7-18) 10/05/18 06:00 Creatinine 0.7 mg/dL (0.55-1.3) 10/05/18 06:00 Creat Clearance w eGFR > 60 (>60) 10/05/18 06:00 Random Glucose 96 mg/dL (74-106) 10/05/18 06:00 Calcium 8.8 mg/dL (8.5-10.1) 10/05/18 06:00 Total Bilirubin 0.3 mg/dL (0.2-1) 10/05/18 06:00 AST 49 U/L (15-37) H 10/05/18 06:00 ALT 56 U/L (13-61) 10/05/18 06:00 Alkaline Phosphatase 44 U/L (45-117) L 10/05/18 06:00 Total Protein 6.9 g/dl (6.4-8.2) 10/05/18 06:00 Albumin 3.5 g/dl (3.4-5.0) 10/05/18 06:00 RPR Titer Nonreactive (NONREACTIVE) 10/05/18 06:00 lab noted Assessment: 10/06/18 14:17 withdrawal sx Plan: continue detox
[2018-10-06] MEDS: chlordiazePOXIDE 5 MG CAPSULE PO SCH ×2 (17:37→22:19)
[2018-10-06] MEDS: chlordiazePOXIDE HCL 25 MG CAPSULE PO PRN (18:50)
[2018-10-06] MEDS: LIDOCAINE PATCH REMOVAL MC SCH (22:19)
[2018-10-06] MEDS: THIAMINE HCL 100 MG TABLET (FP) PO SCH (22:19)
[2018-10-06] MEDS: guaiFENesin 200 MG/10 ML 10 ML UNIT-DOSE CUPS PO PRN (23:51)
[2018-10-06] MEDS: MENTHOL/PHENOL 1 EACH UD MM PRN (23:51)
[2018-10-07] MEDS: chlordiazePOXIDE 5 MG CAPSULE PO SCH ×2 (05:29→10:27)
[2018-10-07] MEDS: MENTHOL/PHENOL 1 EACH UD MM PRN ×2 (05:30→21:20)
[2018-10-07] MEDS: guaiFENesin 200 MG/10 ML 10 ML UNIT-DOSE CUPS PO PRN ×2 (05:30→21:20)
[2018-10-07] MEDS ORDERED: METHADONE HCL 10 MG TABLET (FOR DETOX USE ONLY) PO SCH (10:00)
--- NOTE | 2018-10-07 10:24 | PN ---
S CIWA - CIWA Score Nausea/Vomitin-No Nausea/No Vomiting Muscle Tremors: 2 Anxiety: 2 Agitation: 2 Paroxysmal Sweats: 1-Minimal Palms Moist Orientation: 0-Oriented Tacttile Disturbances: 0-None Auditory Disturbances: 0-None Visual Disturbances: 0-None Headache: 1-Very Mild CIWA-Ar Total Score: 8 [facility] COWS - Scale Resting Pulse: 0= [place] 80 or Below Sweatin= Chills/Flushing Restless Observation: 0= Sits Still Pupil Size: 0= Normal to Room Light Bone or Joint Aches: 1= Mild Discomfort Runny Nose/ Eye Tearin= Nasal Congestion GI Upset > 30mins: 1= Stomach Cramp Tremor Observation of Outstretched Hands: 1= Tremor [place], Not Seen Yawning Observation: 0= None Anxiety or Irritability: 1=Feels Anxious/Irritable Goose Flesh Skin: 0=Smooth Skin COWS Score: 6 [facility] Progress Note (SOAP) Subjective: feeling better mild tremor less sweating social with peers in day room Objective: 10/07/18 10:23 Vital Signs Temperature 97.3 F L 10/07/18 09:15 Pulse Rate 70 10/07/18 09:15 Respiratory Rate 18 10/07/18 09:15 Blood Pressure 120/73 10/07/18 09:15 O2 Sat by Pulse Oximetry (%) Laboratory Last Values WBC 7.1 K/mm3 (4.0-10.0) 10/05/18 06:00 RBC 4.52 M/mm3 (4.00-5.60) 10/05/18 06:00 Hgb 14.6 GM/dL (11.7-16.9) 10/05/18 06:00 Hct 41.5 % (35.4-49) 10/05/18 06:00 MCV 91.9 fl (80-96) 10/05/18 06:00 MCH 32.2 pg (25.7-33.7) 10/05/18 06:00 MCHC 35.1 g/dl (32.0-35.9) 10/05/18 06:00 RDW 15.2 % (11.9-15.9) D 10/05/18 06:00 Plt Count 228 K/MM3 (134-434) D 10/05/18 06:00 MPV 8.1 fl (7.5-11.1) D 10/05/18 06:00 Sodium 137 mmol/L (136-145) 10/05/18 06:00 Potassium 4.0 mmol/L (3.5-5.1) 10/05/18 06:00 Chloride 101 mmol/L (98-107) 10/05/18 06:00 Carbon Dioxide 27 mmol/L (21-32) 10/05/18 06:00 Anion Gap 9 MMOL/L (8-16) 10/05/18 06:00 BUN 8 mg/dL (7-18) 10/05/18 06:00 Creatinine 0.7 mg/dL (0.55-1.3) 10/05/18 06:00 Creat Clearance w eGFR > 60 (>60) 10/05/18 06:00 Random Glucose 96 mg/dL (74-106) 10/05/18 06:00 Calcium 8.8 mg/dL (8.5-10.1) 10/05/18 06:00 Total Bilirubin 0.3 mg/dL (0.2-1) 10/05/18 06:00 AST 49 U/L (15-37) H 10/05/18 06:00 ALT 56 U/L (13-61) 10/05/18 06:00 Alkaline Phosphatase 44 U/L (45-117) L 10/05/18 06:00 Total Protein 6.9 g/dl (6.4-8.2) 10/05/18 06:00 Albumin 3.5 g/dl (3.4-5.0) 10/05/18 06:00 RPR Titer Nonreactive (NONREACTIVE) 10/05/18 06:00 lab noted Assessment: 10/07/18 10:23 alcohol and opiate withdrawal sx Plan: continue detox
[2018-10-07] MEDS: NICOTINE 21 MG/24 HOURS TOPICAL PATCH TD SCH (10:25)
[2018-10-07] MEDS: PRENATAL VITAMINS W/ FOLIC ACID TABLET (FP) PO SCH (10:26)
[2018-10-07] MEDS: amLODIPine BESYLATE 10 MG TABLET (FP) PO SCH (10:26)
[2018-10-07] MEDS: LIDOCAINE 5% TOPICAL PATCH TP SCH (10:27)
[2018-10-07] MEDS: chlordiazePOXIDE HCL 10 MG CAPSULE PO SCH ×2 (17:33→22:26)
[2018-10-07] MEDS: THIAMINE HCL 100 MG TABLET (FP) PO SCH (22:27)
[2018-10-07] MEDS: LIDOCAINE PATCH REMOVAL MC SCH (22:27)
[2018-10-08] MEDS: chlordiazePOXIDE HCL 10 MG CAPSULE PO SCH (05:21)
[2018-10-08] MEDS ORDERED: METHADONE HCL 5 MG TABLET (FOR DETOX USE ONLY) PO SCH (06:00)
[2018-10-08 06:33] VITALS: BP 110/68; PULSE 73; TEMP 97
[2018-10-08] MEDS: MENTHOL/PHENOL 1 EACH UD MM PRN (08:29)
--- NOTE | 2018-10-08 12:55 | DS ---
[facility] Detox Discharge Summary Admission Date: 10/04/18 Discharge Date: 10/08/18 - History Present History: Alcohol Dependence, Opioid Dependence Additional Comments: 33 years old male admitted on 10/04/18 for alcohol and opiate withdrawal stabilization completed detox regimen aftercare primary care provider patient is hiv positive treated with tivicay and truvada Pertinent Past History: last ART filled on 09/27/18 patient agrees to return to infectious disease specialist for medical and mental issues encourage medication list in wallet bring lab report and medication list to aftercare appointment - Physical Exam Results Vital Signs: Vital Signs Temperature 97.0 F L 10/08/18 06:33 Pulse Rate 73 10/08/18 06:33 Respiratory Rate 16 10/08/18 06:33 Blood Pressure 110/68 10/08/18 06:33 O2 Sat by Pulse Oximetry (%) Pertinent Admission Physical Exam Findings: alcohol and opiate withdrawal sx Vital Signs Temperature 97.0 F L 10/08/18 06:33 Pulse Rate 73 10/08/18 06:33 Respiratory Rate 16 10/08/18 06:33 Blood Pressure 110/68 10/08/18 06:33 O2 Sat by Pulse Oximetry (%) Laboratory Last Values WBC 7.1 K/mm3 (4.0-10.0) 10/05/18 06:00 RBC 4.52 M/mm3 (4.00-5.60) 10/05/18 06:00 Hgb 14.6 GM/dL (11.7-16.9) 10/05/18 06:00 Hct 41.5 % (35.4-49) 10/05/18 06:00 MCV 91.9 fl (80-96) 10/05/18 06:00 MCH 32.2 pg (25.7-33.7) 10/05/18 06:00 MCHC 35.1 g/dl (32.0-35.9) 10/05/18 06:00 RDW 15.2 % (11.9-15.9) D 10/05/18 06:00 Plt Count 228 K/MM3 (134-434) D 10/05/18 06:00 MPV 8.1 fl (7.5-11.1) D 10/05/18 06:00 Sodium 137 mmol/L (136-145) 10/05/18 06:00 Potassium 4.0 mmol/L (3.5-5.1) 10/05/18 06:00 Chloride 101 mmol/L (98-107) 10/05/18 06:00 Carbon Dioxide 27 mmol/L (21-32) 10/05/18 06:00 Anion Gap 9 MMOL/L (8-16) 10/05/18 06:00 BUN 8 mg/dL (7-18) 10/05/18 06:00 Creatinine 0.7 mg/dL (0.55-1.3) 10/05/18 06:00 Creat Clearance w eGFR > 60 (>60) 10/05/18 06:00 Random Glucose 96 mg/dL (74-106) 10/05/18 06:00 Calcium 8.8 mg/dL (8.5-10.1) 10/05/18 06:00 Total Bilirubin 0.3 mg/dL (0.2-1) 10/05/18 06:00 AST 49 U/L (15-37) H 10/05/18 06:00 ALT 56 U/L (13-61) 10/05/18 06:00 Alkaline Phosphatase 44 U/L (45-117) L 10/05/18 06:00 Total Protein 6.9 g/dl (6.4-8.2) 10/05/18 06:00 Albumin 3.5 g/dl (3.4-5.0) 10/05/18 06:00 RPR Titer Nonreactive (NONREACTIVE) 10/05/18 06:00 lab noted - Treatment Hospital Course: Detox Protocol Followed, Detoxed Safely, Responded well, Discharged Condition Good, Rehab Referral Accepted Patient has Accepted a Rehab Referral to: infectious disease specialist - Medication Discharge Medications: Ambulatory Orders Sertraline HCl [Zoloft -] 50 mg PO DAILY 05/10/17 Dextroamphetamine/Amphetamine [Adderall Xr 20 mg Capsule] 20 mg PO BID 10/04/18 Lamotrigine [Lamictal -] 200 mg PO DAILY 10/04/18 Amlodipine Besylate [Norvasc -] 10 mg PO DAILY #14 tablet 10/07/18 - Diagnosis (1) Alcohol dependence with uncomplicated withdrawal Status: Acute (2) HIV (human immunodeficiency virus infection) Status: Chronic Qualifiers: HIV symptom status: asymptomatic Qualified Code(s): Z21 - Asymptomatic human immunodeficiency virus [HIV] infection status (3) Nicotine dependence Status: Acute Qualifiers: Nicotine product type: cigarettes Substance use status: in withdrawal Qualified Code(s): F17.213 - Nicotine dependence, cigarettes, with withdrawal (4) Opioid dependence Status: Acute Qualifiers: Substance use status: in withdrawal Qualified Code(s): F11.23 - Opioid dependence with withdrawal (5) Use of cane as ambulatory aid Status: Chronic - AMA Did Patient Leave Against Medical Advice: No
== END 2018-10-08 09:07 | disposition home or self-care (01) | DRG 773 ==
LOC: YASAS 11:24 → Y3N 14:01
PROVIDERS: ADMIT Surgery; ATTEND Surgery
DX: F11.23 Opioid dependence with withdrawal (principal); F10.230 Alcohol dependence with withdrawal, uncomplicated; F17.210 Nicotine dependence, cigarettes, uncomplicated; F32.9 Major depressive disorder, single episode, unspecified; Z21 Asymptomatic human immunodeficiency virus [HIV] infection status; I10 Essential (primary) hypertension; R26.89 Other abnormalities of gait and mobility; Z99.89 Dependence on other enabling machines and devices
CPT/HCPCS: 36415; 80053; 85027; 86593; J0735

== ENCOUNTER 2019-09-02 14:45 | Inpatient (IN) | payer OTHER ==
[~2019-09-02 14:45] MED LIST: METHADONE HCL 10 MG TABLET (FOR DETOX USE ONLY) PO ONE
[2019-09-02 18:05] VITALS: BMI 24.7
--- NOTE | 2019-09-02 22:58 | HP ---
COWS - Scale Resting Pulse: 0= [place] 80 or Below Sweatin= Chills/Flushing Restless Observation: 1= Difficult to Sit Still Pupil Size: 1= Pupils >than Normal Bone or Joint Aches: 2= Severe Diffuse Aches Runny Nose/ Eye Tearin= Runny Nose/Eyes GI Upset > 30mins: 3= Vomiting/Diarrhea (vomiting x 2, diarrhea x 3) Tremor Observation: 4= Gross Tremor/Twitching Yawning Observation: 1= 1-2x During Session Anxiety or Irritability: 2=Irritable/Anxious Goose Flesh Skin: 3=Piloerection COWS Score: 20 CIWA Score Nausea/Vomitin (vomiting x 2) Muscle Tremors: 4-Moderate,w/Arms Extend Anxiety: 3 Agitation: 3 Paroxysmal Sweats: 3 Orientation: 0-Oriented Tacttile Disturbances: 0-None Auditory Disturbances: 0-None Visual Disturbances: 0-None Headache: 4-Moderately Severe CIWA-Ar Total Score: 19 - Admission Criteria OASAS Guidelines: Admission for Medically Managed Detox: Requires at least one of the followin. CIWA greater than 12 2. Seizures within the past 24 hours 3. Delirium tremens within the past 24 hours 4. Hallucinations within the past 24 hours 5. Acute intervention needed for co occurring medical disorder 6. Acute intervention needed for co occurring psychiatric disorder 7. Severe withdrawal that cannot be handled at a lower level of care (continued vomiting, continued diarrhea, abnormal vital signs) requiring intravenous medication and/or fluids 8. Admitting History and Physical - Smoking History Smoking history: Current every day smoker Have you smoked in the past 12 months: Yes Aproximately how many cigarettes per day: 10 - Alcohol/Substance Use Hx Alcohol Use: Yes Admission ROS [facility] Chief Complaint: Seeking admission to detox from alcohol and Heroin Allergies/Adverse Reactions: Allergies Allergy/AdvReac Type Severity Reaction Status Date / Time No Known Allergies Allergy Verified 09/02/19 17:49 History of Present Illness: 34 years old male with a long history of opioid and alcohol withdrawal symptoms is seeking admission to detox. Patient's last admission to [facility] was for the period 10/04/2018 - 10/08/2018. Patient [place]. He reports that he was sober while staying with his mom and relapsed when he came back to [place]. He reports past medical history of hypertension and denies Psych. history and suicidal ideation at this time. Exam Limitations: No Limitations - Ebola screening Have you traveled outside of the country in the last 21 days: No (N) Have you had contact with anyone from an Ebola affected area: No Do you have a fever: No - Review of Systems Constitutional: Chills, Malaise, Changes in sleep EENT: reports: Nose Congestion Respiratory: reports: No Symptoms reported GI: reports: Diarrhea, Poor Appetite, Poor Fluid Intake, Vomiting, Abdominal cramping : reports: No Symptoms Reported Musculoskeletal: reports: Back Pain Integumentary: reports: Dryness, Flushing Neuro: reports: Tremors Endocrine: reports: No Symptoms Reported Hematology: reports: No Symptoms Reported Psychiatric: reports: Mood/Affect Appropiate, Orientated x3, Anxious Other Systems: Reviewed and Negative Patient History - Patient Medical History Hx Anemia: No Hx Asthma: No Hx Chronic Obstructive Pulmonary Disease (COPD): No Hx Cancer: No Hx Cardiac Disorders: No Hx Congestive Heart Failure: No Hx Hypertension: No Hx Hypercholesterolemia: No Hx Pacemaker: No HX Cerebrovascular Accident: No Hx Seizures: No Hx Dementia: No Hx Diabetes: No Hx Gastrointestinal Disorders: No Hx Liver Disease: No Hx Genitourinary Disorders: No Hx Sexually Transmitted Disorders: No Hx Renal Disease (ESRD): No Hx Thyroid Disease: No Hx Human Immunodeficiency Virus (HIV): No Hx Hepatitis C: No Hx Depression: Yes Hx Suicide Attempt: No (Denies suicidal ideation at this time) Hx Bipolar Disorder: No Hx Schizophrenia: No - Patient Surgical History Past Surgical History: No Hx Neurologic Surgery: No Hx Cataract Extraction: No Hx Cardiac Surgery: No Hx Lung Surgery: No Hx Abdominal Surgery: No Hx Appendectomy: No Hx Cholecystectomy: No Hx Genitourinary Surgery: No Hx Orthopedic Surgery: No Anesthesia Reaction: No - PPD History Date: 10/06/18 Results: 0 mm - Reproductive History Patient is a Female of Child Bearing Age (11 -55 yrs old): No (male) - Smoking Cessation Smoking history: Current every day smoker Have you smoked in the past 12 months: Yes Aproximately how many cigarettes per day: 10 Cigars Per Day: 0 Hx Chewing Tobacco Use: No Initiated information on smoking cessation: Yes 'Breaking Loose' booklet given: 09/02/19 - Substance & Tx. History Hx Alcohol Use: Yes Hx Substance Use: Yes Substance Use Type: Alcohol, Opiates Hx Substance Use Treatment: Yes - Substances abused Alcohol Substance route: Oral Frequency: Daily Amount used: 1 liter/ vodka Age of first use: 21 Date of last use: 09/02/19 Heroin Substance route: Inhalation Frequency: Daily Amount used: 2 bundles/20 bags Age of first use: 21 Date of last use: 09/02/19 Admission Physical Exam [facility] - Vital Signs Vital Signs: Vital Signs - 24 hr 09/02/19 17:49 Temperature 98.7 F Pulse Rate 79 Respiratory 16 Rate Blood Pressure 153/90 - Physical General Appearance: Yes: Moderate Distress, Tremorous, Anxious HEENTM: Yes: Nasal Congestion Respiratory: Yes: Lungs Clear, Normal Breath Sounds, No Respiratory Distress Neck: Yes: Supple, Trachea in good position Breast: Yes: Breast Exam Deferred Cardiology: Yes: Within Normal Limits, Regular Rhythm, Regular Rate Abdominal: Yes: Normal Bowel Sounds Genitourinary: Yes: Within Normal Limits Back: Yes: Normal Inspection Musculoskeletal: Yes: Within Normal Limits, full range of Motion Extremities: Yes: Tremors Neurological: Yes: Within Normal Limits Integumentary: Yes: Warm Lymphatic: Yes: Within Normal Limits - Diagnostic (1) Alcohol dependence with uncomplicated withdrawal Current Visit: Yes Status: Acute (2) Nicotine dependence Current Visit: Yes Status: Chronic Qualifiers: Nicotine product type: cigarettes Substance use status: in withdrawal Qualified Code(s): F17.213 - Nicotine dependence, cigarettes, with withdrawal (3) Opioid dependence with withdrawal Current Visit: Yes Status: Acute Cleared for Admission [facility] - Detox or Rehab [facility] Level of Care: Medically Managed Detox Regimen/Protocol: Methadone/Librium Breathalyzer - Breathalyzer Breathalyzer: 0.064 Urine Drug Screen - Test Device Lot number: [id number] Expiration date: 03/19/21 - Control Is test valid?: Yes - Results Drug screen NEGATIVE: No Urine drug screen results: MOP-Opiates Inpatient Rehab Admission - Rehab Decision to Admit Inpatient rehab admission?: No
[2019-09-02] MEDS ORDERED: MAGNESIUM CITRATE 300 ML BOTTLE PO PRN (23:24)
[2019-09-02] MEDS ORDERED: NICOTINE POLACRILEX 2 MG GUM BUC PRN (23:24)
[2019-09-02] MEDS ORDERED: cloNIDine HCL 0.1 MG TABLET PO PRN (23:24)
[2019-09-02] MEDS ORDERED: MAGNESIUM HYDROX 2400MG/30ML ORAL SUSPENSION 30 ML CUP PO PRN (23:24)
[2019-09-02] MEDS ORDERED: MENTHOL/PHENOL 1 EACH UD MM PRN (23:24)
[2019-09-02] MEDS ORDERED: IBUPROFEN 400 MG TABLET (FP) PO PRN (23:24)
[2019-09-02] MEDS ORDERED: ACETAMINOPHEN 325 MG TABLET (FP) PO PRN ×2 (23:24)
[2019-09-02] MEDS ORDERED: MAG HYDROX/AL HYDROX/SIMETH 30 ML UNIT-DOSE CUP PO PRN (23:24)
[2019-09-02] MEDS ORDERED: hydrOXYzine PAMOATE 25 MG CAPSULE (FP) PO PRN (23:24)
[2019-09-03] MEDS ORDERED: cloNIDine HCL 0.1 MG TABLET PO PRN (01:09)
[2019-09-03] MEDS: chlordiazePOXIDE HCL 25 MG CAPSULE PO SCH ×5 (01:17→22:08)
[2019-09-03] MEDS: chlordiazePOXIDE HCL 25 MG CAPSULE PO PRN ×3 (01:47→19:05)
[2019-09-03] MEDS ORDERED: METHADONE HCL 10 MG TABLET (FOR DETOX USE ONLY) PO ONE (02:00)
[2019-09-03] MEDS ORDERED: METHADONE (DETOX) 20 MG, METHADONE (DETOX) 5 MG PO ONE (06:00)
[2019-09-03 09:42] LABS: HEMATOCRIT 43.5 % (35.4-49); HEMOGLOBIN 14.7 GM/dL (11.7-16.9); MCH 29.9 pg (25.7-33.7); MCHC 33.9 g/dl (32.0-35.9); MEAN CELL VOLUME 88.3 fl (80-96); MEAN PLT VOLUME 7.8 fl (7.5-11.1); PLATELET COUNT 206 K/MM3 (134-434); RBC 4.93 M/mm3 (4.00-5.60); RDW 15.2 % (11.9-15.9); WHITE BLOOD COUNT 5.4 K/mm3 (4.0-10.0)
[2019-09-03 09:54] LABS: ALBUMIN 3.9 g/dl (3.4-5.0); BILIRUBIN,TOTAL 0.5 mg/dL (0.2-1); CALCIUM 9.9 mg/dL (8.5-10.1); CREATININE 0.9 mg/dL (0.55-1.3); POTASSIUM 3.9 mmol/L (3.5-5.1); TOT PROT 7.7 g/dl (6.4-8.2)
--- NOTE | 2019-09-03 10:07 | EKG ---
Test Reason : Blood Pressure : / mmHG Vent. Rate : 066 BPM Atrial Rate : 066 BPM P-R Int : 164 ms QRS Dur : 094 ms QT Int : 450 ms P-R-T Axes : 051 042 040 degrees QTc Int : 471 ms NORMAL SINUS RHYTHM MODERATE VOLTAGE CRITERIA FOR LVH, MAY BE NORMAL VARIANT BORDERLINE ECG WHEN COMPARED WITH ECG OF 10-MAY-2017 21:03, NO SIGNIFICANT CHANGE WAS FOUND Confirmed by HINA PETERSON, TABITHA ([id number]) on 09/03/2019 10:06:52 AM Referred By: Confirmed By:TABITHA SANTAMARIA MD
[2019-09-03] MEDS: NICOTINE 21 MG/24 HOURS TOPICAL PATCH TD SCH (10:08)
[2019-09-03] MEDS: PRENATAL VITAMINS W/ FOLIC ACID TABLET (FP) PO SCH (10:08)
[2019-09-03] MEDS: amLODIPine BESYLATE 10 MG TABLET (FP) PO SCH ×2 (10:09→10:11)
--- NOTE | 2019-09-03 11:30 | PN ---
[facility] CIWA - CIWA Score Nausea/Vomitin-Mild Nausea/No Vomiting Muscle Tremors: 1-None Visible, but [place] Anxiety: 2 Agitation: 1-Slight > Activity Paroxysmal Sweats: 2 Orientation: 0-Oriented Tacttile Disturbances: 2-Mild Itch/Numbness/Burn Auditory Disturbances: 0-None Visual Disturbances: 0-None Headache: 1-Very Mild CIWA-Ar Total Score: 10 BHS COWS - Scale Resting Pulse: 0= [place] 80 or Below Sweatin=Flushed/Facial Moisture Restless Observation: 1= Difficult to Sit Still Pupil Size: 1= Pupils >than Normal Bone or Joint Aches: 2= Severe Diffuse Aches Runny Nose/ Eye Tearin= Nasal Congestion GI Upset > 30mins: 1= Stomach Cramp Tremor Observation of Outstretched Hands: 1= Tremor [place], Not Seen Yawning Observation: 0= None Anxiety or Irritability: 1=Feels Anxious/Irritable Goose Flesh Skin: 0=Smooth Skin COWS Score: 10 S Progress Note (SOAP) Subjective: interrupted sleep, sweats, shakes , headache Objective: 09/03/19 11:26 Vital Signs Temperature 98.2 F 09/03/19 09:18 Pulse Rate 64 09/03/19 09:18 Respiratory Rate 16 09/03/19 09:18 Blood Pressure 146/94 09/03/19 09:18 O2 Sat by Pulse Oximetry (%) Laboratory Tests 09/03/19 09/03/19 08:10 08:10 WBC 5.4 RBC 4.93 Hgb 14.7 Hct 43.5 MCV 88.3 MCH 29.9 MCHC 33.9 RDW 15.2 Plt Count 206 MPV 7.8 Sodium 137 Potassium 3.9 Chloride 102 Carbon Dioxide 29 Anion Gap 6 L BUN 8.0 Creatinine 0.9 Est GFR (CKD-EPI)AfAm 126.90 Est GFR (CKD-EPI)NonAf 109.49 Random Glucose 112 H Calcium 9.9 Total Bilirubin 0.5 AST 45 H ALT 60 Alkaline Phosphatase 50 Total Protein 7.7 Albumin 3.9 pt aox3 in nad ambulating \ head large scar over left parietal area Assessment: 09/03/19 11:27 withdrawal sx's sz d/o Plan: cont. detox increase fluids gabapentin 600mg tid pt refused norvasc
[2019-09-03] MEDS ORDERED: GABAPENTIN 250 MG/5 ML ORAL SOLUTION, 470 ML BOTTLE PO SCH (14:00)
[2019-09-03] MEDS: METHOCARBAMOL 500 MG TABLET PO PRN ×2 (15:26→22:10)
[2019-09-03] MEDS: BISMUTH SUBSALICYLATE 524 MG/30 ML UD PO PRN (17:46)
--- NOTE | 2019-09-03 19:47 | PN ---
[facility] Progress Note Note: pt with high BP. Pt did not get morning dose of norvasc- will order pt also has prn clonidine for high BP Vital Signs - 24 hr 09/03/19 09/03/19 09/03/19 00:51 07:33 09:18 Temperature 99.2 F 98.4 F 98.2 F Pulse Rate 85 74 64 Respiratory 18 18 16 Rate Blood Pressure 167/98 151/98 146/94 09/03/19 09/03/19 13:10 17:42 Temperature 97.6 F 98.4 F Pulse Rate 73 74 Respiratory 18 18 Rate Blood Pressure 158/103 H 151/93
[2019-09-03] MEDS ORDERED: amLODIPine BESYLATE 10 MG TABLET (FP) PO ONE (19:48)
[2019-09-03] MEDS: GABAPENTIN 300 MG CAPSULE PO SCH (22:09)
[2019-09-03] MEDS: THIAMINE HCL 100 MG TABLET (FP) PO SCH (22:09)
[2019-09-03] MEDS: MELATONIN 5 MG TABLETS PO PRN (22:10)
[2019-09-04] MEDS ORDERED: METHADONE HCL 10 MG TABLET (FOR DETOX USE ONLY) ONE (04:17)
[2019-09-04] MEDS ORDERED: METHADONE HCL 5 MG TABLET (FOR DETOX USE ONLY) ONE (04:18)
[2019-09-04] MEDS ORDERED: METHADONE HCL 10 MG TABLET (FOR DETOX USE ONLY) PO ONE (06:00)
[2019-09-04] MEDS ORDERED: METHADONE (DETOX) 20 MG, METHADONE (DETOX) 5 MG PO ONE (06:00)
[2019-09-04] MEDS: chlordiazePOXIDE HCL 25 MG CAPSULE PO SCH ×4 (06:03→22:23)
[2019-09-04] MEDS: BISMUTH SUBSALICYLATE 524 MG/30 ML UD PO PRN (06:04)
[2019-09-04] MEDS: GABAPENTIN 300 MG CAPSULE PO SCH ×3 (06:04→22:23)
[2019-09-04] MEDS ORDERED: cloNIDine HCL 0.1 MG TABLET PO PRN (09:16)
--- NOTE | 2019-09-04 09:21 | PN ---
S CIWA - CIWA Score Nausea/Vomitin-Mild Nausea/No Vomiting Muscle Tremors: 3 Anxiety: 3 Agitation: 2 Paroxysmal Sweats: 1-Minimal Palms Moist Orientation: 0-Oriented Tacttile Disturbances: 0-None Auditory Disturbances: 0-None Visual Disturbances: 0-None Headache: 2-Mild CIWA-Ar Total Score: 12 BHS COWS - Scale Resting Pulse: 1= [place] 81-100 Sweatin= No chills or Flushing Restless Observation: 0= Sits Still Pupil Size: 1= Pupils >than Normal Bone or Joint Aches: 0= None Runny Nose/ Eye Tearin= None GI Upset > 30mins: 2= Nausea/Diarrhea Tremor Observation of Outstretched Hands: 2= Slight Tremor Visible Yawning Observation: 0= None Anxiety or Irritability: 1=Feels Anxious/Irritable Goose Flesh Skin: 3=Piloerection COWS Score: 10 [facility] Progress Note (SOAP) Subjective: 34 years old male admitted on 09/02/19 for alcohol and opiate withdrawal sx management treating with librium and methadone detox regimens reports muscle cramping and tremor robaxine 500 mg po x 1 patient will received routine librium as well as 2pm librium 25 mg po x 1 c/o gerd alcohol irritation to gi discontinue motrin begin pepecide 20 mg po bid c/o anxiety with trouble sleep through the night belsomra 5 mg po x 1 discuss medication assisted treatment program picking up narcan from pharmacy long history of bp elevation clonidine 0.1mg po q6h prn with amlodipine 10 mg po daily Objective: 09/04/19 09:23 Vital Signs Temperature 97.0 F L 09/04/19 06:17 Pulse Rate 83 09/04/19 09:01 Respiratory Rate 18 09/04/19 09:01 Blood Pressure 143/101 H 09/04/19 09:01 O2 Sat by Pulse Oximetry (%) Laboratory Last Values WBC 5.4 K/mm3 (4.0-10.0) 09/03/19 08:10 RBC 4.93 M/mm3 (4.00-5.60) 09/03/19 08:10 Hgb 14.7 GM/dL (11.7-16.9) 09/03/19 08:10 Hct 43.5 % (35.4-49) 09/03/19 08:10 MCV 88.3 fl (80-96) 09/03/19 08:10 MCH 29.9 pg (25.7-33.7) 09/03/19 08:10 MCHC 33.9 g/dl (32.0-35.9) 09/03/19 08:10 RDW 15.2 % (11.9-15.9) 09/03/19 08:10 Plt Count 206 K/MM3 (134-434) 09/03/19 08:10 MPV 7.8 fl (7.5-11.1) 09/03/19 08:10 Sodium 137 mmol/L (136-145) 09/03/19 08:10 Potassium 3.9 mmol/L (3.5-5.1) 09/03/19 08:10 Chloride 102 mmol/L (98-107) 09/03/19 08:10 Carbon Dioxide 29 mmol/L (21-32) 09/03/19 08:10 Anion Gap 6 MMOL/L (8-16) L 09/03/19 08:10 BUN 8.0 mg/dL (7-18) 09/03/19 08:10 Creatinine 0.9 mg/dL (0.55-1.3) 09/03/19 08:10 Est GFR (CKD-EPI)AfAm 126.90 09/03/19 08:10 Est GFR (CKD-EPI)NonAf 109.49 09/03/19 08:10 Random Glucose 112 mg/dL (74-106) H 09/03/19 08:10 Calcium 9.9 mg/dL (8.5-10.1) 09/03/19 08:10 Total Bilirubin 0.5 mg/dL (0.2-1) 09/03/19 08:10 AST 45 U/L (15-37) H 09/03/19 08:10 ALT 60 U/L (13-61) 09/03/19 08:10 Alkaline Phosphatase 50 U/L (45-117) 09/03/19 08:10 Total Protein 7.7 g/dl (6.4-8.2) 09/03/19 08:10 Albumin 3.9 g/dl (3.4-5.0) 09/03/19 08:10 RPR Titer Nonreactive (NONREACTIVE) 09/03/19 08:10 lab noted Assessment: 09/04/19 09:23 alcohol and opiate withdrawal Plan: librium and methadone regimens
[2019-09-04] MEDS ORDERED: LOPERAMIDE HCL 2 MG CAPSULE PO ONE (09:42)
[2019-09-04] MEDS ORDERED: METHOCARBAMOL 500 MG TABLET PO ONE (10:00)
[2019-09-04] MEDS: PRENATAL VITAMINS W/ FOLIC ACID TABLET (FP) PO SCH (10:07)
[2019-09-04] MEDS: amLODIPine BESYLATE 10 MG TABLET (FP) PO SCH (10:08)
[2019-09-04] MEDS: NICOTINE 21 MG/24 HOURS TOPICAL PATCH TD SCH (10:08)
[2019-09-04] MEDS: FAMOTIDINE 20 MG TABLET PO SCH ×2 (10:09→22:23)
[2019-09-04] MEDS ORDERED: chlordiazePOXIDE HCL 25 MG CAPSULE PO ONE (14:00)
[2019-09-04] MEDS: METHOCARBAMOL 500 MG TABLET PO PRN (14:30)
[2019-09-04] MEDS ORDERED: SUVOREXANT 5 MG TABLET PO ONE (22:00)
[2019-09-04] MEDS: THIAMINE HCL 100 MG TABLET (FP) PO SCH (22:23)
[2019-09-05] MEDS ORDERED: chlordiazePOXIDE HCL 10 MG CAPSULE PO PRN
[2019-09-05] MEDS: chlordiazePOXIDE HCL 10 MG CAPSULE PO SCH ×4 (05:44→22:07)
[2019-09-05] MEDS: GABAPENTIN 300 MG CAPSULE PO SCH ×3 (05:44→22:06)
[2019-09-05] MEDS ORDERED: METHADONE (DETOX) 10 MG, METHADONE (DETOX) 5 MG PO ONE (06:00)
[2019-09-05] MEDS ORDERED: METHADONE HCL 10 MG TABLET (FOR DETOX USE ONLY) PO ONE (06:00)
--- NOTE | 2019-09-05 08:59 | PN ---
S CIWA - CIWA Score Nausea/Vomitin Muscle Tremors: 1-None Visible, but [place] Anxiety: 1-Mildly Anxious Agitation: 0-Normal Activity Paroxysmal Sweats: 2 Orientation: 0-Oriented Tacttile Disturbances: 1-Very Mild Itch/Numbness Auditory Disturbances: 0-None Visual Disturbances: 0-None Headache: 1-Very Mild CIWA-Ar Total Score: 9 BHS COWS - Scale Resting Pulse: 0= [place] 80 or Below Sweatin= Chills/Flushing Restless Observation: 1= Difficult to Sit Still Pupil Size: 1= Pupils >than Normal Bone or Joint Aches: 1= Mild Discomfort Runny Nose/ Eye Tearin= None GI Upset > 30mins: 2= Nausea/Diarrhea Tremor Observation of Outstretched Hands: 1= Tremor [place], Not Seen Yawning Observation: 0= None Anxiety or Irritability: 1=Feels Anxious/Irritable Goose Flesh Skin: 0=Smooth Skin COWS Score: 8 S Progress Note (SOAP) Subjective: sleeping better, but some diarrhea, wants to see [place]. Objective: 09/05/19 08:56 Vital Signs Temperature 97.0 F L 09/05/19 06:42 Pulse Rate 70 09/05/19 06:42 Respiratory Rate 18 09/05/19 06:42 Blood Pressure 127/83 09/05/19 06:42 O2 Sat by Pulse Oximetry (%) Laboratory Tests 09/03/19 09/03/19 09/03/19 08:10 08:10 08:10 WBC 5.4 RBC 4.93 Hgb 14.7 Hct 43.5 MCV 88.3 MCH 29.9 MCHC 33.9 RDW 15.2 Plt Count 206 MPV 7.8 Sodium 137 Potassium 3.9 Chloride 102 Carbon Dioxide 29 Anion Gap 6 L BUN 8.0 Creatinine 0.9 Est GFR (CKD-EPI)AfAm 126.90 Est GFR (CKD-EPI)NonAf 109.49 Random Glucose 112 H Calcium 9.9 Total Bilirubin 0.5 AST 45 H ALT 60 Alkaline Phosphatase 50 Total Protein 7.7 Albumin 3.9 RPR Titer Nonreactive pt aox3 in nad , but anxious Assessment: 09/05/19 08:57 withdrawal sx's anxiety Plan: cont. detox increase fluids pysch eval. imodium prn
[2019-09-05] MEDS: NICOTINE 21 MG/24 HOURS TOPICAL PATCH TD SCH (09:54)
[2019-09-05] MEDS: amLODIPine BESYLATE 10 MG TABLET (FP) PO SCH (09:54)
[2019-09-05] MEDS: FAMOTIDINE 20 MG TABLET PO SCH ×2 (09:54→22:07)
[2019-09-05] MEDS: PRENATAL VITAMINS W/ FOLIC ACID TABLET (FP) PO SCH (09:54)
--- NOTE | 2019-09-05 11:38 | CONSULT ---
[facility] Psychiatric Consult - Data Date of interview: 09/05/19 Admission source: [facility] Identifying data: Revisit to [facility] and admission to [address] [place] [address] for this 34 y/o AA male self-referred for detoxification treatment. ANEUDY issues : alcohol, heroin , nicotine. Patient is single, father of one, homeless, unemployed and deprived of any source of income. Substance Abuse History: Discussed with the patient. Details in current [facility] as follows : Smoking history: Current every day smoker. Have you smoked in the past 12 months: Yes. Aproximately how many cigarettes per day: 10. Cigars Per Day: 0. Hx Chewing Tobacco Use: No. Initiated information on smoking cessation : Yes. 'Breaking Loose' booklet given: 09/02/19. - Substance & Tx. History. Hx Alcohol Use: Yes. Hx Substance Use: Yes. Substance Use Type: Alcohol, Opiates. Hx Substance Use Treatment: Yes. - Substances abused. Alcohol. Substance route: Oral. Frequency: Daily. Amount used: 1 liter/ vodka. Age of first use: 21. Date of last use: 09/02/19. Heroin. Substance route: Inhalation. Frequency: Daily. Amount used: 2 bundles/20 bags. Age of first use: 21. Date of last use: 09/02/19 Medical History: Medical profile is remarkable for recent head trauma ( accidental fall during ETOH intoxication). Otherwise, the patient claims good general health. No reported allergies. Psychiatric History: Patient denies history of psychiatric hospitalizations. Mr Chris endorses the diagnosis of bipolar disorder. He informs that he gets his outpatient services [facility]. NO show for past 2-3 months ( self-report). Patient reports his maintenance medications as zoloft 50 mg/day + lamictal 200 mg/daily + klonopin 2 mg/bid + adderall 20 mg/bid. Adherence to these medications remains questionable (patient indicates that he has not seen a psychiatrist for about three months). He admits himself to sub-optimal compliance. " I still have bottles of these medications at home. I take them once in a while." Denies history of suicide attempts. Physical/Sexual Abuse/Trauma History: Patient denies. Additional Comment: Urine drug screen results: MOP-Opiates. Noted. Mental Status Exam - Mental Status Exam Alert and Oriented to: Time, Place, Person Cognitive Function: Good Patient Appearance: Well Groomed (scar of left side of scalp) Mood: Angry, Irritable Affect: Mood Congruent, Labile Patient Behavior: Inappropriate (medication-seeking behavior : pressuring MD for adderall, klonopin and lamictal. Follows MD in hallways and constantly arguing about medications. Not receptive to verbal redirections and explanations from staff . Manipulative), Impulsive, Talkative, Agitated ( intermittently agitated) Speech Pattern: Clear, Perseverating (about one topic : medications) Voice Loudness: Normal Thought Process: Goal Oriented Thought Disorder: Not Present Hallucinations: Denies Suicidal Ideation: Denies Homicidal Ideation: Denies Insight/Judgement: Poor Sleep: Fair Appetite: Good Gait/Station: Normal Psychiatric Findings - Problem List ([place] 1, 2,3) (1) Alcohol dependence with uncomplicated withdrawal Current Visit: Yes Status: Acute (2) Opioid dependence with withdrawal Current Visit: Yes Status: Acute (3) Nicotine dependence Current Visit: Yes Status: Chronic Qualifiers: Nicotine product type: cigarettes Substance use status: in withdrawal Qualified Code(s): F17.213 - Nicotine dependence, cigarettes, with withdrawal (4) Substance induced mood disorder Current Visit: Yes Status: Chronic (5) History of bipolar disorder Current Visit: Yes Status: Chronic (6) Insomnia Current Visit: Yes Status: Chronic (7) Personality disorder, unspecified Current Visit: Yes Status: Chronic (8) Non-compliance Current Visit: Yes Status: Chronic - Initial Treatment Plan Initial Treatment Plan: Records ([facility]) revisited. Psychiatric interview conducted in the presence of medical students (with patient's verbal authorization). Psychoeducation. Firm limit-setting. Support. NA/AA meetings. Groups. Medications resumed as follows : zoloft 50 mg po daily + gabapentin 600 mg po tid + trazodone 100 mg po hs. Patient is already covered with librium ( benzodiazepine) but he argues that librium " is doing nothing " and he is pressuring MD to add clonazepam + dextroamphetamine to the regimen. Oblivious and resistant to explanations provided by MD and nursing staff. Lamictal is witheld due to self-report of chronic non-adherence (patient is hostile to the recommended protocol of re-starting lamotrigine at the lowest dose of 25 mg/day and titrating slowly. " I want my 200 mg daily right away." Side effects/ benefits of current medications are discussed with patient. Gave his consent ( verbal) but he continues to request more drugs (against clinical justification) . Patient has reported a history of skin rash in 2019 after restarting lamotrigine (on his own) following days of non compliance. Observation. Contact established via telephone ([phone]) with pharmacist at [facility] : last medication pick-up for lamictal 200 mg/day + adderall 20 mg/bid was in December 2018. Refills are still untouched at that pharmacy (dated 08/18/19). Those refills were obtained from doctors in ED settings.
[2019-09-05] MEDS: SERTRALINE HCL 50 MG TABLET (FP) PO SCH (15:30)
[2019-09-05] MEDS: traZODone HCL 100 MG TABLET (FP) PO SCH (22:06)
[2019-09-05] MEDS: THIAMINE HCL 100 MG TABLET (FP) PO SCH (22:07)
[2019-09-05] MEDS: MELATONIN 5 MG TABLETS PO PRN (22:09)
[2019-09-06] MEDS ORDERED: METHADONE HCL 5 MG TABLET (FOR DETOX USE ONLY) ONE (04:51)
[2019-09-06] MEDS ORDERED: METHADONE HCL 10 MG TABLET (FOR DETOX USE ONLY) ONE (04:51)
[2019-09-06] MEDS: GABAPENTIN 300 MG CAPSULE PO SCH ×3 (05:42→22:33)
[2019-09-06] MEDS: chlordiazePOXIDE HCL 10 MG CAPSULE PO SCH ×2 (05:42→17:27)
[2019-09-06] MEDS ORDERED: METHADONE (DETOX) 10 MG, METHADONE (DETOX) 5 MG PO ONE (06:00)
[2019-09-06] MEDS ORDERED: METHADONE HCL 10 MG TABLET (FOR DETOX USE ONLY) PO ONE (06:00)
--- NOTE | 2019-09-06 10:22 | PN ---
[facility] CIWA - CIWA Score Nausea/Vomitin-No Nausea/No Vomiting Muscle Tremors: None Anxiety: 3 Agitation: 0-Normal Activity Paroxysmal Sweats: 3 Orientation: 0-Oriented Tacttile Disturbances: 0-None Auditory Disturbances: 0-None Visual Disturbances: 0-None Headache: 1-Very Mild CIWA-Ar Total Score: 7 [facility] COWS - Scale Resting Pulse: 0= [place] 80 or Below Sweatin= Chills/Flushing Restless Observation: 1= Difficult to Sit Still Pupil Size: 0= Normal to Room Light Bone or Joint Aches: 2= Severe Diffuse Aches Runny Nose/ Eye Tearin= None GI Upset > 30mins: 0= None Tremor Observation of Outstretched Hands: 0= None Yawning Observation: 1= 1-2x During Session Anxiety or Irritability: 2=Irritable/Anxious Goose Flesh Skin: 0=Smooth Skin COWS Score: 7 S Progress Note (SOAP) Subjective: c/o muscle aches, anxiety, irritability, sweats, and mild headache. Objective: 09/06/19 10:21 Vital Signs 09/06/19 09/06/19 09/06/19 03:30 06:13 09:06 Temperature 97.2 F L 97.2 F L Pulse Rate 69 76 Respiratory 18 18 18 Rate Blood Pressure 115/75 120/86 Labs WBC 5.4 K/mm3 (4.0-10.0) 09/03/19 08:10 RBC 4.93 M/mm3 (4.00-5.60) 09/03/19 08:10 Hgb 14.7 GM/dL (11.7-16.9) 09/03/19 08:10 Hct 43.5 % (35.4-49) 09/03/19 08:10 MCV 88.3 fl (80-96) 09/03/19 08:10 MCH 29.9 pg (25.7-33.7) 09/03/19 08:10 MCHC 33.9 g/dl (32.0-35.9) 09/03/19 08:10 RDW 15.2 % (11.9-15.9) 09/03/19 08:10 Plt Count 206 K/MM3 (134-434) 09/03/19 08:10 MPV 7.8 fl (7.5-11.1) 09/03/19 08:10 Sodium 137 mmol/L (136-145) 09/03/19 08:10 Potassium 3.9 mmol/L (3.5-5.1) 09/03/19 08:10 Chloride 102 mmol/L (98-107) 09/03/19 08:10 Carbon Dioxide 29 mmol/L (21-32) 09/03/19 08:10 Anion Gap 6 MMOL/L (8-16) L 09/03/19 08:10 BUN 8.0 mg/dL (7-18) 09/03/19 08:10 Creatinine 0.9 mg/dL (0.55-1.3) 09/03/19 08:10 Est GFR (CKD-EPI)AfAm 126.90 09/03/19 08:10 Est GFR (CKD-EPI)NonAf 109.49 09/03/19 08:10 Random Glucose 112 mg/dL (74-106) H 09/03/19 08:10 Calcium 9.9 mg/dL (8.5-10.1) 09/03/19 08:10 Total Bilirubin 0.5 mg/dL (0.2-1) 09/03/19 08:10 AST 45 U/L (15-37) H 09/03/19 08:10 ALT 60 U/L (13-61) 09/03/19 08:10 Alkaline Phosphatase 50 U/L (45-117) 09/03/19 08:10 Total Protein 7.7 g/dl (6.4-8.2) 09/03/19 08:10 Albumin 3.9 g/dl (3.4-5.0) 09/03/19 08:10 RPR Titer Nonreactive (NONREACTIVE) 09/03/19 08:10 Labs noted. Assessment: 09/06/19 10:22 AOX3, in no acute respiratory distress. Full ROM, ambulating in the unit. Withdrawal symptoms. Plan: continue detox.
[2019-09-06] MEDS: SERTRALINE HCL 50 MG TABLET (FP) PO SCH (10:29)
[2019-09-06] MEDS: amLODIPine BESYLATE 10 MG TABLET (FP) PO SCH (10:29)
[2019-09-06] MEDS: PRENATAL VITAMINS W/ FOLIC ACID TABLET (FP) PO SCH (10:29)
[2019-09-06] MEDS: FAMOTIDINE 20 MG TABLET PO SCH ×2 (10:29→22:33)
[2019-09-06] MEDS: NICOTINE 21 MG/24 HOURS TOPICAL PATCH TD SCH (10:29)
--- NOTE | 2019-09-06 12:39 | PN ---
[facility] Progress Note Note: Psychiatry Attending's note : Patient continues to pressure MD for lamotrigine. Mr Chris has been escalating on the unit. Security personnel is called for assistance. A multidisciplinary team met with the patient. Detailed explanations given to patient : . risk of Kyle-Dylan syndrome . necessity for slow titration after prolonged period of non-adherence. . Benefits of alternate mood stabilizer gabapentin. . benefits of augmentation with atypical agents (seroquel, abilify). Intervention : NO lamotrigine will be dispensed. Atypicals offered : patient declines.. Will continue gabapentin. Zoloft is raised to 100 mg po daily. Patient agrees.
[2019-09-06] MEDS: traZODone HCL 100 MG TABLET (FP) PO SCH (22:33)
[2019-09-06] MEDS: THIAMINE HCL 100 MG TABLET (FP) PO SCH (22:33)
[2019-09-07] MEDS ORDERED: ASPIRIN 81 MG CHEWABLE TABLETS PO ONE (00:45)
--- NOTE | 2019-09-07 00:47 | PN ---
S Progress Note Note: Patient complained of chest pain. Vital Signs Temperature 98.6 F 09/06/19 21:59 Pulse Rate 77 09/07/19 00:32 Respiratory Rate 18 09/07/19 00:18 Blood Pressure 140/91 09/07/19 00:32 O2 Sat by Pulse Oximetry (%) Action: EKG stat - NSR Aspirin 81mg tablet oral stat Monitor patient
[2019-09-07] MEDS ORDERED: chlordiazePOXIDE HCL 10 MG CAPSULE PO ONE (05:00)
[2019-09-07] MEDS ORDERED: METHADONE HCL 10 MG TABLET (FOR DETOX USE ONLY) PO ONE (06:00)
[2019-09-07] MEDS ORDERED: METHADONE HCL 5 MG TABLET (FOR DETOX USE ONLY) PO ONE (06:00)
[2019-09-07] MEDS: GABAPENTIN 300 MG CAPSULE PO SCH ×3 (07:15→22:36)
--- NOTE | 2019-09-07 08:58 | PN ---
S CIWA - CIWA Score Nausea/Vomitin-No Nausea/No Vomiting Muscle Tremors: 1-None Visible, but [place] Anxiety: 2 Agitation: 1-Slight > Activity Paroxysmal Sweats: 1-Minimal Palms Moist Orientation: 0-Oriented Tacttile Disturbances: 0-None Auditory Disturbances: 0-None Visual Disturbances: 0-None Headache: 0-None Present CIWA-Ar Total Score: 5 BHS COWS - Scale Resting Pulse: 0= [place] 80 or Below Sweatin= Chills/Flushing Restless Observation: 0= Sits Still Pupil Size: 0= Normal to Room Light Bone or Joint Aches: 1= Mild Discomfort Runny Nose/ Eye Tearin= Nasal Congestion GI Upset > 30mins: 0= None Tremor Observation of Outstretched Hands: 1= Tremor [place], Not Seen Yawning Observation: 0= None Anxiety or Irritability: 1=Feels Anxious/Irritable Goose Flesh Skin: 0=Smooth Skin COWS Score: 5 S Progress Note (SOAP) Subjective: 34 years old male admitted on 09/02/19 for alcohol and opiate withdrawal sx management treating with librium and methadone detox regimens c/o long history of anxiety requests klonopine and neurontine dosage up [facility] teaching on risks of knolopine mixed with neurontine that respiratory suppression encourage the patient follow up with mental health provider in [facility] for anxiety management Objective: 09/07/19 08:57 alcohol and opiate withdrawal Vital Signs Temperature 96.7 F L 09/07/19 05:59 Pulse Rate 64 09/07/19 05:59 Respiratory Rate 16 09/07/19 05:59 Blood Pressure 114/71 09/07/19 05:59 O2 Sat by Pulse Oximetry (%) Laboratory Last Values WBC 5.4 K/mm3 (4.0-10.0) 09/03/19 08:10 RBC 4.93 M/mm3 (4.00-5.60) 09/03/19 08:10 Hgb 14.7 GM/dL (11.7-16.9) 09/03/19 08:10 Hct 43.5 % (35.4-49) 09/03/19 08:10 MCV 88.3 fl (80-96) 09/03/19 08:10 MCH 29.9 pg (25.7-33.7) 09/03/19 08:10 MCHC 33.9 g/dl (32.0-35.9) 09/03/19 08:10 RDW 15.2 % (11.9-15.9) 09/03/19 08:10 Plt Count 206 K/MM3 (134-434) 09/03/19 08:10 MPV 7.8 fl (7.5-11.1) 09/03/19 08:10 Sodium 137 mmol/L (136-145) 09/03/19 08:10 Potassium 3.9 mmol/L (3.5-5.1) 09/03/19 08:10 Chloride 102 mmol/L (98-107) 09/03/19 08:10 Carbon Dioxide 29 mmol/L (21-32) 09/03/19 08:10 Anion Gap 6 MMOL/L (8-16) L 09/03/19 08:10 BUN 8.0 mg/dL (7-18) 09/03/19 08:10 Creatinine 0.9 mg/dL (0.55-1.3) 09/03/19 08:10 Est GFR (CKD-EPI)AfAm 126.90 09/03/19 08:10 Est GFR (CKD-EPI)NonAf 109.49 09/03/19 08:10 Random Glucose 112 mg/dL (74-106) H 09/03/19 08:10 Calcium 9.9 mg/dL (8.5-10.1) 09/03/19 08:10 Total Bilirubin 0.5 mg/dL (0.2-1) 09/03/19 08:10 AST 45 U/L (15-37) H 09/03/19 08:10 ALT 60 U/L (13-61) 09/03/19 08:10 Alkaline Phosphatase 50 U/L (45-117) 09/03/19 08:10 Total Protein 7.7 g/dl (6.4-8.2) 09/03/19 08:10 Albumin 3.9 g/dl (3.4-5.0) 09/03/19 08:10 RPR Titer Nonreactive (NONREACTIVE) 09/03/19 08:10 lab noted Assessment: 09/07/19 08:58 alcohol and opiate withdrawal Plan: librium and methadone regimens
[2019-09-07] MEDS ORDERED: SERTRALINE HCL 50 MG TABLET (FP) PO SCH (10:00)
[2019-09-07] MEDS: PRENATAL VITAMINS W/ FOLIC ACID TABLET (FP) PO SCH (10:14)
[2019-09-07] MEDS: FAMOTIDINE 20 MG TABLET PO SCH ×2 (10:14→22:36)
[2019-09-07] MEDS: amLODIPine BESYLATE 10 MG TABLET (FP) PO SCH (10:14)
--- NOTE | 2019-09-07 11:03 | EKG ---
Test Reason : Blood Pressure : / mmHG Vent. Rate : 075 BPM Atrial Rate : 075 BPM P-R Int : 168 ms QRS Dur : 088 ms QT Int : 398 ms P-R-T Axes : 052 030 024 degrees QTc Int : 444 ms NORMAL SINUS RHYTHM NORMAL ECG WHEN COMPARED WITH ECG OF 02-SEP-2019 23:58, NO SIGNIFICANT CHANGE WAS FOUND Confirmed by CHULA MACDONALD MD ([id number]) on 09/07/2019 11:03:18 AM Referred By: ALEX KULKARNI Confirmed By:CHULA MACDONALD MD
[2019-09-07] MEDS: NICOTINE 21 MG/24 HOURS TOPICAL PATCH TD SCH (12:42)
[2019-09-07] MEDS: traZODone HCL 100 MG TABLET (FP) PO SCH (22:36)
[2019-09-07] MEDS: THIAMINE HCL 100 MG TABLET (FP) PO SCH (22:37)
[2019-09-08] MEDS: GABAPENTIN 300 MG CAPSULE PO SCH (05:33)
[2019-09-08 05:54] VITALS: BP 102/59; PULSE 70; TEMP 96.7
[2019-09-08] MEDS ORDERED: METHADONE HCL 5 MG TABLET (FOR DETOX USE ONLY) PO ONE (06:00)
--- NOTE | 2019-09-08 11:38 | DS ---
[facility] Detox Discharge Summary Admission Date: 09/02/19 Discharge Date: 09/08/19 - History Present History: Alcohol Dependence, Opioid Dependence Additional Comments: 34 years old male admitted on 09/02/19 for alcohol and opiate withdrawal sx management treated with librium and methadone detox regimens patient completed the librium and methadone regimens and tolerated well alert oriented x 3 seen by psychiatrist begin lamotragine continues up to 200 mg patient will follow up with his mental health provider in the community cardiac [id number] regular rate rhythm respiratory clear lungs bilaterally on auscultation skin warm and dry - Physical Exam Results Vital Signs: Vital Signs Temperature 96.7 F L 09/08/19 05:53 Pulse Rate 70 09/08/19 05:53 Respiratory Rate 18 09/08/19 05:53 Blood Pressure 102/59 L 09/08/19 05:53 O2 Sat by Pulse Oximetry (%) Pertinent Admission Physical Exam Findings: alcohol and opiate withdrawal Laboratory Laboratory Last Values WBC 5.4 K/mm3 (4.0-10.0) 09/03/19 08:10 RBC 4.93 M/mm3 (4.00-5.60) 09/03/19 08:10 Hgb 14.7 GM/dL (11.7-16.9) 09/03/19 08:10 Hct 43.5 % (35.4-49) 09/03/19 08:10 MCV 88.3 fl (80-96) 09/03/19 08:10 MCH 29.9 pg (25.7-33.7) 09/03/19 08:10 MCHC 33.9 g/dl (32.0-35.9) 09/03/19 08:10 RDW 15.2 % (11.9-15.9) 09/03/19 08:10 Plt Count 206 K/MM3 (134-434) 09/03/19 08:10 MPV 7.8 fl (7.5-11.1) 09/03/19 08:10 Sodium 137 mmol/L (136-145) 09/03/19 08:10 Potassium 3.9 mmol/L (3.5-5.1) 09/03/19 08:10 Chloride 102 mmol/L (98-107) 09/03/19 08:10 Carbon Dioxide 29 mmol/L (21-32) 09/03/19 08:10 Anion Gap 6 MMOL/L (8-16) L 09/03/19 08:10 BUN 8.0 mg/dL (7-18) 09/03/19 08:10 Creatinine 0.9 mg/dL (0.55-1.3) 09/03/19 08:10 Est GFR (CKD-EPI)AfAm 126.90 09/03/19 08:10 Est GFR (CKD-EPI)NonAf 109.49 09/03/19 08:10 Random Glucose 112 mg/dL (74-106) H 09/03/19 08:10 Calcium 9.9 mg/dL (8.5-10.1) 09/03/19 08:10 Total Bilirubin 0.5 mg/dL (0.2-1) 09/03/19 08:10 AST 45 U/L (15-37) H 09/03/19 08:10 ALT 60 U/L (13-61) 09/03/19 08:10 Alkaline Phosphatase 50 U/L (45-117) 09/03/19 08:10 Total Protein 7.7 g/dl (6.4-8.2) 09/03/19 08:10 Albumin 3.9 g/dl (3.4-5.0) 09/03/19 08:10 RPR Titer Nonreactive (NONREACTIVE) 09/03/19 08:10 lab noted - Treatment Hospital Course: Detox Protocol Followed, Detoxed Safely, Responded well, Discharged Condition Good, Rehab Referral Accepted Patient has Accepted a Rehab Referral to: [facility] - Medication Discharge Medications: Ambulatory Orders Sertraline HCl [Zoloft -] 50 mg PO DAILY 05/10/17 Dextroamphetamine/Amphetamine [Adderall Xr 20 mg Capsule] 20 mg PO BID 10/04/18 Lamotrigine [Lamictal -] 150 mg PO DAILY 10/04/18 Amlodipine Besylate [Norvasc -] 10 mg PO DAILY #14 tablet 10/07/18 Gabapentin 600 mg PO TID 09/02/19 Levetiracetam [Keppra] 250 mg PO 09/02/19 traZODone HCL [Trazodone HCl] 150 mg PO HS 09/03/19 Naloxone HCl [Narcan] 4 mg NS ASDIR PRN #1 spray 09/04/19 - Diagnosis (1) Alcohol dependence with uncomplicated withdrawal Status: Acute (2) Opioid dependence with withdrawal Status: Acute (3) HIV (human immunodeficiency virus infection) Status: Chronic Qualifiers: HIV symptom status: asymptomatic Qualified Code(s): Z21 - Asymptomatic human immunodeficiency virus [HIV] infection status (4) Nicotine dependence Status: Acute Qualifiers: Nicotine product type: cigarettes Substance use status: in withdrawal Qualified Code(s): F17.213 - Nicotine dependence, cigarettes, with withdrawal (5) Substance induced mood disorder Status: Suspected (6) Use of cane as ambulatory aid Status: Chronic - AMA Did Patient Leave Against Medical Advice: No CIWA Score - CIWA Score Nausea/Vomitin-No Nausea/No Vomiting Muscle Tremors: 1-None Visible, but [place] Anxiety: 1-Mildly Anxious Agitation: 0-Normal Activity Paroxysmal Sweats: No Perspiration Orientation: 0-Oriented Tacttile Disturbances: 0-None Auditory Disturbances: 0-None Visual Disturbances: 0-None Headache: 0-None Present CIWA-Ar Total Score: 2 COWS (PN) - Opiate Withdrawal Resting Pulse: 0= [place] 80 or Below Sweatin= No chills or Flushing Restless Observation: 0= Sits Still Pupil Size: 0= Normal to Room Light Bone or Joint Aches: 0= None Runny Nose/ Eye Tearin= None GI Upset > 30mins: 0= None Tremor Observation of Outstretched Hands: 2= Slight Tremor Visible Yawning Observation: 0= None Anxiety or Irritability: 0= None [place] Flesh Skin: 0=Smooth Skin COWS Score: 2
== END 2019-09-08 09:33 | disposition home or self-care (01) | DRG 773 ==
LOC: YASAS 14:45 → Y3N 23:45
PROVIDERS: ADMIT Allergy & Immunology; ATTEND Allergy & Immunology
PROC: HZ2ZZZZ Detoxification Services for Substance Abuse Treatment (ICD-10-PCS; principal; 2019-09-02)
DX: F11.23 Opioid dependence with withdrawal (principal); F10.230 Alcohol dependence with withdrawal, uncomplicated; F17.210 Nicotine dependence, cigarettes, uncomplicated; F19.24 Other psychoactive substance dependence with psychoactive substance-induced mood disorder; F60.9 Personality disorder, unspecified; F41.9 Anxiety disorder, unspecified; Z21 Asymptomatic human immunodeficiency virus [HIV] infection status; R07.9 Chest pain, unspecified; G47.00 Insomnia, unspecified; R29.2 Abnormal reflex; Z99.89 Dependence on other enabling machines and devices; Z91.19 Patient's noncompliance with other medical treatment and regimen
CPT/HCPCS: 36415; 80053; 85027; 86593; 93005; 93010; J0735